=== PATIENT | female | born 1945 | race African-American/Black ===

== ENCOUNTER 2018-11-15 13:38 | Emergency (ER) | payer OTHER ==
[2018-11-15 14:18] VITALS: BP 131/59; PULSE 50; TEMP 97.6; BMI 34.3
[2018-11-15] MEDS ORDERED: ONDANSETRON 4 MG/2 ML VIAL IVPUSH ONE (14:39)
--- NOTE | 2018-11-15 14:39 | PDOC ---
History of Present Illness - General Chief Complaint: CVA/TIA Stated Complaint: LIP & LEG NUMBNESS, L SHOULDER PAIN Time Seen by Provider: 11/15/18 13:46 History Source: Patient Past History - Past Medical History Allergies/Adverse Reactions: Allergies Allergy/AdvReac Type Severity Reaction Status Date / Time codeine [Codeine] Allergy Verified 11/15/18 14:12 Penicillins Allergy Verified 11/15/18 14:12 Home Medications: Ambulatory Orders Omeprazole [Prilosec (RX)] 20 mg PO DAILY 01/19/13 COPD: No GI Disorders: Yes (GERD) - Immunization History Td Vaccination: Yes Immunization Up to Date: Yes - Suicide/Smoking/Psychosocial Hx Smoking Status: No Smoking History: Never smoked Number of Cigarettes Smoked Daily: 0 Hx Alcohol Use: No Drug/Substance Use Hx: No *Physical Exam - Vital Signs Last Vital Signs Temp Pulse Resp BP Pulse Ox 97.6 F 50 L 18 131/59 L 97 11/15/18 13:39 11/15/18 13:39 11/15/18 13:39 11/15/18 13:39 11/15/18 13:39 Moderate Sedation - Procedure Monitoring Vital Signs: Procedure Monitoring Vital Signs Temperature 97.6 F 11/15/18 13:39 Pulse Rate 50 L 11/15/18 13:39 Respiratory Rate 18 11/15/18 13:39 Blood Pressure 131/59 L 11/15/18 13:39 O2 Sat by Pulse Oximetry (%) 97 11/15/18 13:39 *DC/Admit/Observation/Transfer Diagnosis at time of Disposition: Osteoarthritis Qualifiers: Osteoarthritis location: multiple joints Osteoarthritis type: unspecified Qualified Code(s): M15.9 - Polyosteoarthritis, unspecified - Discharge Dispostion Disposition: HOME Condition at time of disposition: Good Decision to Admit order: No - Referrals Referrals: Chris Daniel MD [Primary Care Provider] - - Patient Instructions Printed Discharge Instructions: DI for Arthritis Additional Instructions: Try to do exercise every day. Follow up with your doctor - Post Discharge Activity
[2018-11-15] MEDS ORDERED: ONDANSETRON 4 MG/2 ML VIAL ONE (14:46)
[2018-11-15 15:19] LABS: BASO % 0.7 % (0-2.0); EOS % 0.3 % (0-4.5); HEMATOCRIT 37.2 % (32.4-45.2); HEMOGLOBIN 12.4 GM/dl (10.7-15.3); MCH 29.1 pg (25.7-33.7); MCHC 33.2 g/dl (32.0-36.0); MEAN CELL VOLUME 87.7 fl (80-96); MEAN PLT VOLUME 8.7 fl (7.5-11.1); MONO % 12.1 % (3.8-10.2); NEUT % 57.9 % (42.8-82.8); PLATELET COUNT 163 K/MM3 (134-434); RBC 4.25 M/mm3 (3.60-5.2); RDW 13.4 % (11.6-15.6); WHITE BLOOD COUNT 3.3 K/mm3 (4.0-10.8)
[2018-11-15 15:38] LABS: ALBUMIN 3.7 g/dl (3.4-5.0); ALK PHOS 86 U/L (45-117); ANION GAP 6 MMOL/L (8-16); BILIRUBIN,TOTAL 0.7 mg/dl (0.2-1); BLOOD UREA NITROGEN 15 mg/dl (7-18); CALCIUM 9.1 mg/dl (8.5-10); CHLORIDE 106 mmol/L (98-107); CO2 24 mmol/L (21-32); CREATININE 0.7 mg/dl (0.55-1.3); GLUCOSE,RANDOM 90 mg/dl (74-106); POTASSIUM 3.9 mmol/L (3.5-5.1); SGOT/AST 23 U/L (15-37); SGPT/ALT 19 U/L (13-61); SODIUM 136 mmol/L (136-145); TOT PROT 7.3 g/dl (6.4-8.2)
--- NOTE | 2018-11-16 13:11 | EKG ---
Test Reason : Blood Pressure : / mmHG Vent. Rate : 051 BPM Atrial Rate : 051 BPM P-R Int : 244 ms QRS Dur : 098 ms QT Int : 446 ms P-R-T Axes : 085 053 037 degrees QTc Int : 411 ms SINUS BRADYCARDIA WITH SINUS ARRHYTHMIA WITH 1ST DEGREE A-V BLOCK OTHERWISE NORMAL ECG WHEN COMPARED WITH ECG OF 20-JUL-2011 05:26, NO SIGNIFICANT CHANGE WAS FOUND Confirmed by OLIVER OH, OLGA ([id number]) on 11/16/2018 1:10:45 PM Referred By: DR VEE Confirmed By:OLGA BOYD MD
== END 2018-11-15 16:51 | disposition home or self-care (01) ==
LOC: FER 13:38
PROC: 3E033GC Introduction of Other Therapeutic Substance into Peripheral Vein, Percutaneous Approach (ICD-10-PCS; principal; 2018-11-15)
DX: M15.9 Polyosteoarthritis, unspecified (principal); K21.9 Gastro-esophageal reflux disease without esophagitis; Z88.0 Allergy status to penicillin; Z88.6 Allergy status to analgesic agent
CPT/HCPCS: 36415; 70450-TC; 71045-TC-FY; 80053; 85025; 93005; 99284-25

== ENCOUNTER 2018-12-17 12:02 | Emergency (ER) | payer OTHER ==
[2018-12-17 12:06] VITALS: BP 105/52; PULSE 70; TEMP 97.3; BMI 33.6
[2018-12-17] MEDS ORDERED: SODIUM CHLORIDE 0.9% 1000 ML INFUS.BAG IV ONE (12:46)
[2018-12-17] MEDS ORDERED: ACETAMINOPHEN 1000 MG/100 ML VIAL (NON FORMULARY) IVPB ONE (12:46)
[2018-12-17] MEDS ORDERED: ACETAMINOPHEN INJECTION 100 ML IVPB ONE (13:03)
--- NOTE | 2018-12-17 13:04 | PDOC ---
History of Present Illness - General Chief Complaint: Injury Stated Complaint: Fall Time Seen by Provider: 12/17/18 12:05 - History of Present Illness Initial Comments: 12/17/18 13:00 73 years old with no significant past medical history presents to the emergency department status post a mechanical fall yesterday. Patient has had chronic right hip pain and yesterday while transferring out of bed felt her leg give out on her she fell and landed on her right side also complaining of right hip right abdominal and mild left shoulder. Endorses difficulty with ambulating transferring denies any head trauma no recent fever chills headache chest pain shortness of breath nausea vomiting or diarrhea Past History - Past Medical History Allergies/Adverse Reactions: Allergies Allergy/AdvReac Type Severity Reaction Status Date / Time codeine [Codeine] Allergy Verified 12/17/18 12:06 Penicillins Allergy Verified 12/17/18 12:06 Home Medications: Ambulatory Orders Omeprazole [Prilosec (RX)] 20 mg PO DAILY 01/19/13 COPD: No GI Disorders: Yes (GERD) - Immunization History Td Vaccination: Yes Immunization Up to Date: Yes - Suicide/Smoking/Psychosocial Hx Smoking Status: No Smoking History: Never smoked Number of Cigarettes Smoked Daily: 0 Hx Alcohol Use: No Drug/Substance Use Hx: No Review of Systems - Review of Systems Comments:: 12/17/18 13:01 ROS: A complete review of 10 out of 10 review of systems is taken and is negative apart from what is previously mentioned below and in the HPI. *Physical Exam - Vital Signs Last Vital Signs Temp Pulse Resp BP Pulse Ox 97.3 F L 70 18 105/52 L 98 12/17/18 12:03 12/17/18 12:03 12/17/18 12:03 12/17/18 12:03 12/17/18 12:03 - Physical Exam Comments: 12/17/18 13:08 Vitals: Triage Vital signs reviewed General Appearance: no acute distress, well nourished well developed, Head: Atraumatic, Eyes: Pupils equal reactive round, extraocular movement intact Neck: Supple;No Nucal rigidity Chest Wall: Nontender Cardiac: Regular rate and rhythym, no murmurs, no rubs, no gallops, Lungs: Clear to auscultation bilateral, good air movement bilaterally, Abdomen: Soft, non distended, normal bowel sounds, right lower quadrant tenderness to palpation Extremities: Full range of motion to all extremities, no cyanosis, clubbing, or edema, pain to palpation to the right hip pain with range of motion to the right hip Skin: Warm and dry, no rashes or lesions, no rash, no petechiae Neuro: Strength intact to all extremities, Sensation intact to all extremities, Psych: normal mood, normal affect Moderate Sedation - Procedure Monitoring Vital Signs: Procedure Monitoring Vital Signs Temperature 97.3 F L 12/17/18 12:03 Pulse Rate 70 12/17/18 12:03 Respiratory Rate 18 12/17/18 12:03 Blood Pressure 105/52 L 12/17/18 12:03 O2 Sat by Pulse Oximetry (%) 98 12/17/18 12:03 ED Treatment Course - LABORATORY CBC & Chemistry Diagram: 12/17/18 12:47 12/17/18 12:47 - RADIOLOGY Radiology Studies Ordered: Category Date Time Status ABDOMEN & PELVIS CT W/O CONTR [CT] Stat CT Scan 12/17/18 12:44 Ordered HIP & PELVIS-LEFT [RAD] Stat Radiology 12/17/18 12:45 Ordered Medical Decision Making - Medical Decision Making 12/17/18 15:34 Right hip right lower quadrant left shoulder pain status post mechanical fall yesterday Labs and urinalysis within normal limits, CAT scan with no acute pathology. Patient has had chronic right hip pain. I provided the patient with orthopedic follow-up given age and comorbidities we'll recommend Tylenol to 6 hours as needed for pain Findings, the need for follow-up and strict return instructions discussed with patient. *DC/Admit/Observation/Transfer Diagnosis at time of Disposition: Hip pain Qualifiers: Laterality: right Qualified Code(s): M25.551 - Pain in right hip - Discharge Dispostion Disposition: HOME Condition at time of disposition: Stable Decision to Admit order: No - Referrals Referrals: Eduardo Rodriguez MD [Staff Physician] - - Patient Instructions Printed Discharge Instructions: DI for Hip Bursitis Additional Instructions: Ice affected area 20 minutes on 20 minutes off. Take [id number] Tylenol as directed on package as needed for pain. Follow-up this week with Dr. Rodriguez orthopedics. Return to the emergency department for any severe worsening symptoms or for any concerns. - Post Discharge Activity
[2018-12-17 13:23] LABS: HEMOGLOBIN 11.9 GM/dl (10.7-15.3); MCH 27.6 pg (25.7-33.7); MCHC 32.2 g/dl (32.0-36.0); MEAN CELL VOLUME 85.7 fl (80-96); MEAN PLT VOLUME 9.1 fl (7.5-11.1); PLATELET COUNT 164 K/MM3 (134-434); RBC 4.32 M/mm3 (3.60-5.2); RDW 12.6 % (11.6-15.6); WHITE BLOOD COUNT 3.1 K/mm3 (4.0-10.8)
[2018-12-17 13:31] LABS: ALBUMIN 3.4 g/dl (3.4-5.0); ALK PHOS 77 U/L (45-117); ANION GAP 9 MMOL/L (8-16); BILIRUBIN,TOTAL 0.4 mg/dl (0.2-1); BLOOD UREA NITROGEN 14 mg/dl (7-18); CALCIUM 8.9 mg/dl (8.5-10); CHLORIDE 104 mmol/L (98-107); CO2 24 mmol/L (21-32); CREATININE 0.9 mg/dl (0.55-1.3); GLUCOSE,RANDOM 97 mg/dl (74-106); POTASSIUM 3.7 mmol/L (3.5-5.1); SGOT/AST 22 U/L (15-37); SGPT/ALT 17 U/L (13-61); SODIUM 137 mmol/L (136-145); TOT PROT 7.2 g/dl (6.4-8.2)
[2018-12-17 15:17] LABS: URINE APPEARANCE Clear; URINE BILIRUBIN Negative (NEGATIVE); URINE COLOR Yellow; URINE GLUCOSE (UA) Negative (NEGATIVE); URINE KETONE Negative (NEGATIVE); URINE LEUK ESTERASE Negative (NEGATIVE); URINE NITRITE Negative (NEGATIVE); URINE PROTEIN Negative (NEGATIVE)
[2018-12-17 20:26] LABS: PLATELET ESTIMATE ADEQUATE
== END 2018-12-17 15:45 | disposition home or self-care (01) ==
LOC: FER 12:02
PROC: 3E033NZ Introduction of Analgesics, Hypnotics, Sedatives into Peripheral Vein, Percutaneous Approach (ICD-10-PCS; principal; 2018-12-17)
PROC: 3E0337Z Introduction of Electrolytic and Water Balance Substance into Peripheral Vein, Percutaneous Approach (ICD-10-PCS; 2018-12-17)
DX: M25.511 Pain in right shoulder (principal); W18.39XA Other fall on same level, initial encounter; Y93.89 Activity, other specified; Y92.89 Other specified places as the place of occurrence of the external cause
CPT/HCPCS: 36415; 73030-TC-LT-FY; 73523-TC-FY; 74176-TC; 80053; 81003; 85025; 87086; 99282-25; J0131; J7030

== ENCOUNTER 2019-07-09 11:28 | Emergency (ER) | payer OTHER ==
--- NOTE | 2019-07-09 11:35 | PDOC ---
History of Present Illness - General Chief Complaint: Injury Stated Complaint: FALL Time Seen by Provider: 07/09/19 11:34 History Source: Patient Exam Limitations: No Limitations - History of Present Illness Initial Comments: 07/09/19 12:00 Kemi Smiley is a 74yF w PMHx osteoarthritis presenting w fall. At 8:15am, pt was pushing cart to car, got cart stuck in sidewalk rut, fell back onto L hip 1st, then R hip. N LOC, vomiting, change in vision, not on blood thinners. Currently has nausea, bilateral hip pain, and R distal tib/fib pain. Ambulated after incident. Denies fever, headache, cough, SOB, chest/AB pain, urinary/bowel movement changes. Past History - Past Medical History Allergies/Adverse Reactions: Allergies Allergy/AdvReac Type Severity Reaction Status Date / Time codeine [Codeine] Allergy Rash Verified 07/09/19 11:33 Penicillins Allergy Rash Verified 07/09/19 11:33 Home Medications: Ambulatory Orders Omeprazole [Prilosec (RX)] 20 mg PO DAILY 01/19/13 COPD: No GI Disorders: Yes (GERD) - Immunization History Td Vaccination: Yes Immunization Up to Date: Yes - Psycho Social/Smoking Cessation Hx Smoking Status: No Smoking History: Never smoked Number of Cigarettes Smoked Daily: 0 Hx Alcohol Use: No Drug/Substance Use Hx: No Review of Systems - Review of Systems Constitutional: No: Chills, Fever HEENTM: No: Eye Pain, Nose Pain, Throat Pain, Mouth Pain Respiratory: No: Cough, Shortness of Breath Cardiac (ROS): No: Chest Pain, Palpitations, Syncope ABD/GI: Yes: Nausea. No: Abdominal Distended, Constipated, Diarrhea, Vomiting : No: Burning, Dysuria, Discharge, Frequency, Flank Pain, Hematuria Musculoskeletal: Yes: Other (xiomy hip, distal r tib/fib pain). No: Joint Swelling, Muscle Pain Integumentary: No: Bruising, Dryness, Erythema Neurological: No: Headache, Seizure, Tingling, Tremors Psychiatric: No: Anxiety, Depression, Stressors Endocrine: No: Excessive Sweating, Flushing, Intolerance to Cold, Intolerance to Heat Hematologic/Lymphatic: No: Anemia, Blood Clots *Physical Exam - Physical Exam General Appearance: Yes: Nourished, Appropriately Dressed, Mild Distress HEENT: positive: EOMI, IRVIN, Normal Voice, Hearing Grossly Normal. negative: Scleral Icterus (R), Scleral Icterus (L), Nasal Congestion, Rhinorrhea Respiratory/Chest: positive: Lungs Clear, Normal Breath Sounds. negative: Chest Tender, Respiratory Distress, Crackles, Rales, Rhonchi, Stridor, Wheezing Cardiovascular: positive: Regular Rate, S1, S2, Bradycardia. negative: Edema, Murmur Vascular Pulses: Dorsalis-Pedis (R): 3+, Doralis-Pedis (L): 3+ Gastrointestinal/Abdominal: positive: Normal Bowel Sounds, Flat, Soft. negative : Tender, Organomegaly, Distended, Guarding Musculoskeletal: positive: Normal Inspection, Other (no vertebral step-offs/ deformities/edema). negative: CVA Tenderness (R), CVA Tenderness (L), Vertebral Tenderness Extremity: positive: Normal Capillary Refill, Tender (R > L lateral hip tenderness 2 inches below ischial spines, tender distal lateral R tib/fib), Pelvis Stable. negative: Swelling Integumentary: positive: Normal Color. negative: Rash, Swelling, Ecchymosis, Bruising Neurologic: positive: communications supervisor II-XII NML intact, Fully Oriented, Alert, Normal Mood/ Affect, Normal Response, Responsive. negative: Motor Strength 5/5 (4/5 L hip flexion, 3/5 R hip flexion, 5/5 xiomy dorsi/plantarflexion), Numbness, Sensory Deficit, Confused, Disoriented ED Treatment Course - LABORATORY CBC & Chemistry Diagram: 07/09/19 12:08 07/09/19 12:08 Medical Decision Making - Medical Decision Making 07/09/19 12:19 CBC CMP trop coags T&S Kemi Smiley is a 74yF w PMHx osteoarthritis presenting w bilateral hip pain and R ankle pain s/p mechanical fall. Hip/pelvis, R ankle XR do not show acute fracture or dislocation. Blood work (CBC, CMP, trop, coags, T&S) normal. Given 1g IV tylenol for pain. Pt ambulating without assistance. D/c home with instructions for tylenol/ibuprofen/ice pain management, PCP f/u, ortho f/u if no improvement. Discharge - Discharge Information Problems reviewed: Yes Clinical Impression/Diagnosis: Hip pain, bilateral Right ankle pain Qualifiers: Chronicity: acute Qualified Code(s): M25.571 - Pain in right ankle and joints of right foot Condition: Stable Disposition: HOME - Admission No - Follow up/Referral Referrals: Chris Daniel MD [Primary Care Provider] - Ramírez Billings DO [Staff Physician] - - Patient Discharge Instructions Patient Printed Discharge Instructions: DI for Hip Pain Additional Instructions: You were seen for hip and ankle pain after falling down. Your x-rays did not show any bone fractures or dislocation. You were given medication for your pain. Please follow up with your primary care doctor regarding this visit. You can apply ice to the painful areas, and take tylenol or ibuprofen as directed on the packaging if you continue to have pain. See the referred orthopedic doctor Dr. Billings if you continue to have pain. Come back to the ED if you cannot walk, develop leg numbness, or have trouble urinating or with bowel movements - Post Discharge Activity
[2019-07-09 11:41] VITALS: TEMP 97.9; BMI 34.5
--- NOTE | 2019-07-09 11:59 | PDOC ---
Attending Attestation - Resident Resident Name: Bipin Young - ED Attending Attestation I have performed the following: I have examined & evaluated the patient, The case was reviewed & discussed with the resident, I agree w/resident's findings & plan, Exceptions are as noted - HPI HPI: 07/09/19 13:54 74 years old past medical history significant for osteoarthritis, GERD, the emergency department status post mechanical fall the cart she was pushing got stuck she fell back onto her left hip and twisted her right hip which she has had chronic pain in. Complaining of pain to her right hip mild pain to her left hip and right distal tib-fib. Pain is mild to moderate she's been able to ambulate on it she ambulated into the emergency department. Pain is alleviated by rest. - Physicial Exam PE: 07/09/19 13:54 Vitals: Triage Vital signs reviewed General Appearance: no acute distress, well nourished well developed, Head: Atraumatic, Neck: Supple;No Nucal rigidity Chest Wall: Nontender Cardiac: Regular rate and rhythym, no murmurs, no rubs, no gallops, Lungs: Clear to auscultation bilateral, good air movement bilaterally, Abdomen: Soft, non distended, normal bowel sounds, non tender to palpation Extremities: Full range of motion to all extremities, no cyanosis, clubbing, or edema, mild pain with range of motion of right hip. Full range of motion no deformity. Skin: Warm and dry, no rashes or lesions, no rash, no petechiae Neuro: Strength intact to all extremities, Sensation intact to all extremities, gait normal Psych: normal mood, normal affect - Medical Decision Making 07/09/19 13:57 Well-appearing no apparent distress. Mechanical fall no head trauma X-rays performed no fractures. Patient's comfortable able to ambulate in no distress we'll have patient follow up with orthopedics this week. Findings, the need for follow-up and strict return instructions discussed with patient.
[2019-07-09] MEDS ORDERED: ACETAMINOPHEN 1000 MG/100 ML VIAL (NON FORMULARY) IVPB ONE (12:00)
[2019-07-09] MEDS ORDERED: ACETAMINOPHEN INJECTION 100 ML IVPB ONE (12:36)
[2019-07-09 12:37] LABS: HEMOGLOBIN 11.8 GM/dl (10.7-15.3); MCH 28.8 pg (25.7-33.7); MCHC 32.7 g/dl (32.0-36.0); MEAN CELL VOLUME 88.1 fl (80-96); MEAN PLT VOLUME 9.5 fl (7.5-11.1); PLATELET COUNT 133 K/MM3 (134-434); RBC 4.09 M/mm3 (3.60-5.2); RDW 13.3 % (11.6-15.6); WHITE BLOOD COUNT 3.2 K/mm3 (4.0-10.8)
[2019-07-09 12:46] LABS: ALBUMIN 3.5 g/dl (3.4-5.0); BILIRUBIN,TOTAL 0.7 mg/dl (0.2-1); CALCIUM 8.7 mg/dl (8.5-10); CREATININE 0.9 mg/dl (0.55-1.3); INR 1.18 (0.82-1.09); POTASSIUM 3.5 mmol/L (3.5-5.1); PROTHROMBIN TIME (PATIENT) 13.2 SEC (10.2-13.0); TOT PROT 7.2 g/dl (6.4-8.2)
[2019-07-09 13:38] VITALS: BP 129/75; PULSE 78
[2019-07-09 13:43] LABS: PLATELET ESTIMATE ADEQUATE
== END 2019-07-09 13:40 | disposition home or self-care (01) ==
LOC: FER 11:28
PROC: 3E0337Z Introduction of Electrolytic and Water Balance Substance into Peripheral Vein, Percutaneous Approach (ICD-10-PCS; principal; 2019-07-09)
DX: M25.552 Pain in left hip (principal); M25.551 Pain in right hip; M19.90 Unspecified osteoarthritis, unspecified site; W18.39XA Other fall on same level, initial encounter; Y93.89 Activity, other specified; Y92.89 Other specified places as the place of occurrence of the external cause
CPT/HCPCS: 36415; 73523-TC-FY; 73590-TC-RT-FY; 73610-TC-RT-FY; 80053; 84484; 85025; 85610; 85730; 86850; 86900; 86901; 99284-25; J0131

== ENCOUNTER 2021-12-29 10:09 | Observation (INO) | payer OTHER ==
[2021-12-29] MEDS ORDERED: MECLIZINE HCL 25 MG TABLET (FP) PO ONE (10:35)
[2021-12-29] MEDS ORDERED: SODIUM CHLORIDE 1,000 ML IV STA (10:35)
[2021-12-29] MEDS ORDERED: ONDANSETRON 4 MG/2 ML VIAL IVPUSH ONE (10:35)
[2021-12-29] MEDS ORDERED: ONDANSETRON 4 MG/2 ML VIAL ONE (10:59)
[2021-12-29] MEDS ORDERED: MECLIZINE HCL 25 MG TABLET (FP) ONE (10:59)
[2021-12-29 11:23] LABS: BASO % 0.7 % (0-2.0); EOS % 0.6 % (0-4.5); HEMATOCRIT 38.1 % (32.4-45.2); HEMOGLOBIN 12.9 GM/dL (10.7-15.3); LYMPH % 17.3 % (8-40); MCH 28.8 pg (25.7-33.7); MCHC 33.8 g/dl (32.0-36.0); MONO % 12.6 % (3.8-10.2); NEUT % 68.8 % (42.8-82.8); PLATELET COUNT 118 10^3/uL (134-434); RBC 4.49 M/mm3 (3.60-5.2); RDW 14.1 % (11.6-15.6); WHITE BLOOD COUNT 3.7 K/mm3 (4.0-10.0)
[2021-12-29 11:47] LABS: CALCIUM 8.9 mg/dL (8.5-10.1)
[2021-12-29 11:48] LABS: ALBUMIN 3.2 g/dl (3.4-5.0); BLOOD UREA NITROGEN 11.3 mg/dL (7-18)
[2021-12-29 11:51] LABS: CREATININE 0.7 mg/dL (0.55-1.3)
[2021-12-29 11:53] LABS: BILIRUBIN,TOTAL 0.6 mg/dL (0.2-1); TOT PROT 7.1 g/dl (6.4-8.2)
[2021-12-29 13:03] LABS: PH,URINE 8.5 (5.0-8.0); URINE APPEARANCE CLEAR; URINE BILIRUBIN NEGATIVE (NEGATIVE); URINE COLOR YELLOW; URINE GLUCOSE (UA) NEGATIVE (NEGATIVE); URINE KETONE NEGATIVE (NEGATIVE); URINE LEUK ESTERASE NEGATIVE (NEGATIVE); URINE NITRITE NEGATIVE (NEGATIVE); URINE PROTEIN NEGATIVE (NEGATIVE); URINE UROBILINOGEN 0.2 mg/dL (0.2-1.0)
[2021-12-29 18:11] VITALS: BMI 27.2
[2021-12-29] MEDS: MECLIZINE HCL 12.5 MG TABLET PO SCH ×2 (18:15→23:24)
[2021-12-29] MEDS: ASPIRIN COATED 81 MG TABLET.EC PO SCH (18:15)
[2021-12-29] MEDS: D5-1/2NS+20 MEQ KCL - 20 MEQ/1,000 ML INFUS.BAG IV SCH (18:21)
[2021-12-29] MEDS: HEPARIN NA (PORCINE) 5,000 UNITS/ML 1ML VIAL SQ SCH (22:01)
[2021-12-30] MEDS: MECLIZINE HCL 12.5 MG TABLET PO SCH ×3 (05:39→18:08)
[2021-12-30 07:03] LABS: EOS % 1.2 % (0-4.5); HEMATOCRIT 36.2 % (32.4-45.2); HEMOGLOBIN 12.2 GM/dL (10.7-15.3); LYMPH % 43.3 % (8-40); MCH 28.9 pg (25.7-33.7); MCHC 33.8 g/dl (32.0-36.0); MEAN CELL VOLUME 85.4 fl (80-96); MEAN PLT VOLUME 9.3 fl (7.5-11.1); MONO % 18.5 % (3.8-10.2); PLATELET COUNT 102 10^3/uL (134-434); RBC 4.23 M/mm3 (3.60-5.2); WHITE BLOOD COUNT 2.3 K/mm3 (4.0-10.0)
[2021-12-30 07:23] LABS: BLOOD UREA NITROGEN 13.5 mg/dL (7-18); CALCIUM 8.3 mg/dL (8.5-10.1)
[2021-12-30 07:24] LABS: ALBUMIN 2.6 g/dl (3.4-5.0); MAGNESIUM 2.1 mg/dL (1.8-2.4)
[2021-12-30 07:26] LABS: CREATININE 0.8 mg/dL (0.55-1.3)
[2021-12-30 07:28] LABS: BILIRUBIN,TOTAL 0.4 mg/dL (0.2-1); TOT PROT 6.2 g/dl (6.4-8.2)
[2021-12-30] MEDS: HEPARIN NA (PORCINE) 5,000 UNITS/ML 1ML VIAL SQ SCH ×2 (09:47→22:07)
[2021-12-30] MEDS: PANTOPRAZOLE 20 MG TABLET PO SCH (09:47)
[2021-12-30] MEDS: ASPIRIN COATED 81 MG TABLET.EC PO SCH (09:47)
[2021-12-30] MEDS: D5-1/2NS+20 MEQ KCL - 20 MEQ/1,000 ML INFUS.BAG IV SCH (18:08)
[2021-12-31] MEDS: MECLIZINE HCL 12.5 MG TABLET PO SCH ×4 (05:45→18:07)
[2021-12-31] MEDS: HEPARIN NA (PORCINE) 5,000 UNITS/ML 1ML VIAL SQ SCH (10:10)
[2021-12-31] MEDS: ASPIRIN COATED 81 MG TABLET.EC PO SCH (10:10)
[2021-12-31] MEDS: PANTOPRAZOLE 20 MG TABLET PO SCH (10:10)
[2021-12-31 11:46] LABS: BASO % 1.7 % (0-2.0); EOS % 0.2 % (0-4.5); HEMATOCRIT 41.7 % (32.4-45.2); LYMPH % 29.2 % (8-40); MCH 28.7 pg (25.7-33.7); MCHC 33.5 g/dl (32.0-36.0); MEAN CELL VOLUME 85.7 fl (80-96); MEAN PLT VOLUME 8.9 fl (7.5-11.1); MONO % 18.5 % (3.8-10.2); NEUT % 50.4 % (42.8-82.8); PLATELET COUNT 118 10^3/uL (134-434); RBC 4.87 M/mm3 (3.60-5.2); RDW 13.9 % (11.6-15.6); WHITE BLOOD COUNT 3.1 K/mm3 (4.0-10.0)
[2021-12-31 12:23] LABS: ERYTHROCYTE SEDIMENTATION RATE 38 mm/hr (0-30)
[2021-12-31 14:09] VITALS: TEMP 97.5
[2021-12-31] MEDS: D5-1/2NS+20 MEQ KCL - 20 MEQ/1,000 ML INFUS.BAG IV SCH (15:00)
[2021-12-31 17:33] VITALS: BP 136/48; PULSE 54
== END 2021-12-31 21:30 | disposition home or self-care (01) ==
LOC: JER 10:09 → JERBED 14:08 → UNDOADMOB 14:08 → INTOOBSV 14:08 → OBSVTOIN 14:08 → JERBED 17:24 → J4W 17:24
PROVIDERS: ADMIT Family Medicine; ATTEND Family Medicine
PROC: 3E023GC Introduction of Other Therapeutic Substance into Muscle, Percutaneous Approach (ICD-10-PCS; principal; 2021-12-31)
PROC: 3E033GC Introduction of Other Therapeutic Substance into Peripheral Vein, Percutaneous Approach (ICD-10-PCS; 2021-12-31)
PROC: 3E0337Z Introduction of Electrolytic and Water Balance Substance into Peripheral Vein, Percutaneous Approach (ICD-10-PCS; 2021-12-31)
DX: D72.819 Decreased white blood cell count, unspecified (principal); R00.1 Bradycardia, unspecified; R42 Dizziness and giddiness; M15.9 Polyosteoarthritis, unspecified; K21.9 Gastro-esophageal reflux disease without esophagitis; Z88.0 Allergy status to penicillin; Z88.6 Allergy status to analgesic agent
CPT/HCPCS: 36415; 70450-TC; 70551-TC; 76700-TC; 80053; 81003; 82607; 82746; 83735; 84439; 84443; 84484; 85025; 85651; 86140; 86431; 87086; 88300-TC; 93005; 93010; 93306-TC; 96361; 96372; 96374; 99285-25; C9803-CS; G0378; J1644; U0003; U0005

== ENCOUNTER 2022-03-20 10:17 | Emergency (ER) | payer OTHER ==
[2022-03-20 10:36] VITALS: BP 115/86; PULSE 56; TEMP 97.9; BMI 26.5
[2022-03-20] MEDS ORDERED: ACETAMINOPHEN 500 MG TABLET (FP) PO ONE (10:44)
[2022-03-20 11:06] LABS: BASO % 0.8 % (0-2.0); EOS % 0.5 % (0-4.5); HEMATOCRIT 38.6 % (32.4-45.2); HEMOGLOBIN 12.8 GM/dL (10.7-15.3); LYMPH % 31.8 % (8-40); MCH 28.1 pg (25.7-33.7); MEAN CELL VOLUME 85.2 fl (80-96); MEAN PLT VOLUME 8.9 fl (7.5-11.1); MONO % 17.3 % (3.8-10.2); NEUT % 49.6 % (42.8-82.8); PLATELET COUNT 111 10^3/uL (134-434); RBC 4.53 M/mm3 (3.60-5.2); RDW 13.6 % (11.6-15.6); WHITE BLOOD COUNT 2.5 K/mm3 (4.0-10.0)
[2022-03-20] MEDS ORDERED: ACETAMINOPHEN 500 MG TABLET (FP) ONE (11:22)
[2022-03-20 11:27] LABS: ACTIVATED PTT 33.3 SECONDS (25.2-36.5); INR 1.02 (0.83-1.09); PROTHROMBIN TIME (PATIENT) 11.7 SEC (9.7-13.0)
[2022-03-20 11:35] LABS: ALBUMIN 3.3 g/dl (3.4-5.0); BLOOD UREA NITROGEN 14.1 mg/dL (7-18); CALCIUM 8.9 mg/dL (8.5-10.1); MAGNESIUM 2.1 mg/dL (1.8-2.4)
[2022-03-20 11:38] LABS: CREATININE 0.8 mg/dL (0.55-1.3)
[2022-03-20 11:40] LABS: BILIRUBIN,TOTAL 0.5 mg/dL (0.2-1); TOT PROT 7.4 g/dl (6.4-8.2)
[2022-03-20 11:43] LABS: N-TERMINAL BNP 196.6 pg/ml (5-450)
[2022-03-20 12:04] LABS: PH,URINE 6.5 (5.0-8.0); URINE APPEARANCE CLEAR; URINE BILIRUBIN NEGATIVE (NEGATIVE); URINE COLOR YELLOW; URINE GLUCOSE (UA) NEGATIVE (NEGATIVE); URINE KETONE NEGATIVE (NEGATIVE); URINE LEUK ESTERASE NEGATIVE (NEGATIVE); URINE NITRITE NEGATIVE (NEGATIVE); URINE PROTEIN NEGATIVE (NEGATIVE); URINE UROBILINOGEN 0.2 mg/dL (0.2-1.0)
== END 2022-03-20 15:15 | disposition home or self-care (01) ==
LOC: JER 10:17
DX: R07.89 Other chest pain (principal)
CPT/HCPCS: 0241U-QW; 36415; 71045-TC-FY; 71275-TC; 80053; 81003; 83735; 83880; 84484; 85025; 85379; 85610; 85730; 87086; 93005; 93010; 99285-25; Q9967

== ENCOUNTER 2022-06-03 11:56 | Day surgery (SDC) | payer OTHER ==
[2022-05-24 15:02] VITALS: BMI 26.5
[2022-06-03] MEDS ORDERED: MIDAZOLAM HCL 2 MG/2 ML SINGLE DOSE VIAL ONE (12:04)
[2022-06-03] MEDS ORDERED: BUPIVACAINE HCL/PF 0.5% (5 MG/ML) 30 ML VIAL IJ ONE (12:50)
[2022-06-03] MEDS ORDERED: oxyCODONE HCL 5 MG TABLET PO PRN ×2 (13:15)
[2022-06-03] MEDS ORDERED: ACETAMINOPHEN 1000 MG/100 ML BAG IVPB ONE (13:15)
[2022-06-03] MEDS ORDERED: ONDANSETRON 4 MG/2 ML VIAL IVPUSH PRN (13:15)
[2022-06-03] MEDS ORDERED: LACTATED RINGERS SOLUTION 1,000 ML IV SCH (13:15)
[2022-06-03] MEDS ORDERED: BUPIVACAINE HCL/EPINEPHRINE/PF 30 ML VIAL IJ ONE (13:56)
[2022-06-03] MEDS ORDERED: ceFAZolin SODIUM 1 GM VIAL ONE (15:49)
[2022-06-03] MEDS ORDERED: SODIUM CHLORIDE 0.9% P/F 10 ML VIAL IJ ONE (15:49)
[2022-06-03] MEDS ORDERED: ACETAMINOPHEN INJECTION 100 ML IVPB ONE (17:05)
[2022-06-03] MEDS: MECLIZINE HCL 12.5 MG TABLET PO SCH (18:47)
[2022-06-04] MEDS: MECLIZINE HCL 12.5 MG TABLET PO SCH ×3 (00:59→11:14)
[2022-06-04 06:42] VITALS: PULSE 56; RESP 18
[2022-06-04] MEDS ORDERED: LEVOTHYROXINE NA 25 MCG TABLET (FP) PO SCH (07:00)
[2022-06-04 09:09] VITALS: BP 132/55; TEMP 97.9
[2022-06-04] MEDS ORDERED: PANTOPRAZOLE 20 MG TABLET PO SCH (10:00)
== END 2022-06-04 12:05 | disposition home or self-care (01) ==
LOC: FASUSAT 11:56 → FM/S 18:20 → FASUSAT 06-04 12:05
PROVIDERS: ATTEND Orthopaedic Surgery
PROC: 0PB94ZZ Excision of Right Clavicle, Percutaneous Endoscopic Approach (ICD-10-PCS; 2022-06-03)
PROC: 0RBJ4ZZ Excision of Right Shoulder Joint, Percutaneous Endoscopic Approach (ICD-10-PCS; 2022-06-03)
PROC: 0LS30ZZ Reposition Right Upper Arm Tendon, Open Approach (ICD-10-PCS; 2022-06-03)
PROC: 0LQ14ZZ Repair Right Shoulder Tendon, Percutaneous Endoscopic Approach (ICD-10-PCS; principal; 2022-06-03 16:00)
PROC: 0LS34ZZ Reposition Right Upper Arm Tendon, Percutaneous Endoscopic Approach (ICD-10-PCS; 2022-06-03 16:00)
PROC: 0RNJ4ZZ Release Right Shoulder Joint, Percutaneous Endoscopic Approach (ICD-10-PCS; 2022-06-03 16:00)
DX: M19.011 Primary osteoarthritis, right shoulder (principal); M75.01 Adhesive capsulitis of right shoulder; M75.101 Unspecified rotator cuff tear or rupture of right shoulder, not specified as traumatic; M75.21 Bicipital tendinitis, right shoulder; M75.51 Bursitis of right shoulder
CPT/HCPCS: 88304-TC; 94760; C1713

== ENCOUNTER 2022-06-04 16:11 | Emergency (ER) | payer OTHER ==
[2022-06-04] MEDS ORDERED: ACETAMINOPHEN 500 MG TABLET (FP) PO ONE (16:31)
[2022-06-04] MEDS ORDERED: IBUPROFEN 600 MG TABLET (FP) PO ONE ×2 (16:31→16:36)
[2022-06-04 16:35] VITALS: BP 155/96; PULSE 66; RESP 20; TEMP 98; BMI 27.3
[2022-06-04] MEDS ORDERED: ACETAMINOPHEN 500 MG TABLET (FP) ONE (16:36)
== END 2022-06-04 18:01 | disposition home or self-care (01) ==
LOC: FER 16:11
DX: M25.511 Pain in right shoulder (principal)
CPT/HCPCS: 99283-25

== ENCOUNTER 2022-06-20 13:00 | Emergency (ER) | payer OTHER ==
[2022-06-20] MEDS ORDERED: SODIUM CHLORIDE 1,000 ML IV STA (13:18)
[2022-06-20] MEDS ORDERED: ONDANSETRON 4 MG/2 ML VIAL IVPUSH ONE (13:18)
[2022-06-20] MEDS ORDERED: FAMOTIDINE 20 MG/50 ML IVPB 20 MG/50 ML MG IVPB ONE ×2 (13:18→13:34)
[2022-06-20 13:21] VITALS: BMI 27.2
[2022-06-20] MEDS ORDERED: ONDANSETRON 4 MG/2 ML VIAL ONE (13:34)
[2022-06-20 13:42] LABS: HEMATOCRIT 36.7 % (32.4-45.2); HEMOGLOBIN 12.9 G/dL (10.7-15.3); MCHC 35.2 g/dl (32.0-36.0); MEAN CELL VOLUME 85.4 fl (80-96); PLATELET COUNT 124.2 10^3/uL (134-434); RDW 14.8 % (11.6-15.6); WHITE BLOOD COUNT 3.3 10^3/uL (4.0-10.8)
[2022-06-20 14:05] LABS: ALBUMIN 3.5 g/dl (3.4-5.0); BILIRUBIN,TOTAL 0.6 mg/dl (0.2-1); CALCIUM 9.8 mg/dl (8.5-10); TOT PROT 7.4 g/dl (6.4-8.2)
[2022-06-20 16:01] LABS: PLATELET ESTIMATE DECREASED
[2022-06-20 16:07] LABS: EPITHELIAL CELLS FEW /hpf; URINE MUCUS 1+
[2022-06-20 18:42] VITALS: BP 118/75; PULSE 69; RESP 18; TEMP 97.7
== END 2022-06-20 18:40 | disposition home or self-care (01) ==
LOC: FER 13:00
PROC: 3E033GC Introduction of Other Therapeutic Substance into Peripheral Vein, Percutaneous Approach (ICD-10-PCS; principal; 2022-06-20)
DX: R11.2 Nausea with vomiting, unspecified (principal)
CPT/HCPCS: 36415; 74177-TC; 80053; 81003; 81015; 83690; 84484; 85027; 93005; 93010; 99285-25; Q9967

== ENCOUNTER 2022-08-07 16:00 | Inpatient (IN) | payer OTHER ==
[2022-08-07] MEDS ORDERED: SODIUM CHLORIDE 2,449 ML IV ONE (17:50)
[2022-08-07] MEDS ORDERED: ACETAMINOPHEN 1000 MG/100 ML BAG IVPB ONE (17:56)
[2022-08-07] MEDS ORDERED: LACTATED RINGERS SOLUTION 1000 ML INFUS.BAG IV ONE (17:56)
[2022-08-07] MEDS ORDERED: ACETAMINOPHEN INJECTION 100 ML IVPB ONE (18:44)
[2022-08-07 18:49] LABS: ARTERIAL BLD GAS O2 SATURATION 96.4 % (95-98); ARTERIAL BLOOD GAS BASE EXCESS -0.1 mmol/L (-2-2); ARTERIAL BLOOD GAS PO2 74.8 mmHg (80-100)
[2022-08-07 18:50] LABS: BASO % 0.6 % (0-2.0); HEMATOCRIT 36.5 % (32.4-45.2); HEMOGLOBIN 12.1 GM/dL (10.7-15.3); LYMPH % 8.7 % (8-40); MCH 28.6 pg (25.7-33.7); MCHC 33.2 g/dl (32.0-36.0); MEAN CELL VOLUME 86.2 fl (80-96); MEAN PLT VOLUME 9.5 fl (7.5-11.1); MONO % 7.9 % (3.8-10.2); NEUT % 82.8 % (42.8-82.8); RBC 4.23 M/mm3 (3.60-5.2); WHITE BLOOD COUNT 7.7 K/mm3 (4.0-10.0)
[2022-08-07 18:58] LABS: INR 1.17 (0.83-1.09); PROTHROMBIN TIME (PATIENT) 13.5 SEC (9.7-13.0)
[2022-08-07 19:01] LABS: ACTIVATED PTT 19.4 SECONDS (25.2-36.5)
[2022-08-07 19:17] LABS: CALCIUM 8.6 mg/dL (8.5-10.1)
[2022-08-07 19:18] LABS: ALBUMIN 3.3 g/dl (3.4-5.0); BLOOD UREA NITROGEN 14.5 mg/dL (7-18)
[2022-08-07 19:22] LABS: TOT PROT 7.7 g/dl (6.4-8.2)
[2022-08-07 19:37] LABS: PLATELET COUNT 99 10^3/uL (134-434)
[2022-08-07 19:38] LABS: PLATELET ESTIMATE DECREASED
[2022-08-07 21:03] LABS: EPI CELLS 12 /uL (0-25.1); HYALINE CASTS 0 /uL (0-3.1); PH,URINE 6.5 (5.0-8.0); URINE APPEARANCE CLEAR; URINE BACTERIA 5 /uL (0-1359); URINE BILIRUBIN NEGATIVE (NEGATIVE); URINE COLOR YELLOW; URINE GLUCOSE (UA) NEGATIVE (NEGATIVE); URINE KETONE 1+ (NEGATIVE); URINE LEUK ESTERASE NEGATIVE (NEGATIVE); URINE NITRITE NEGATIVE (NEGATIVE); URINE PROTEIN 2+ (NEGATIVE); URINE RBC 85 /uL (0-23.9); URINE WBC 10 /uL (0-25.8)
[2022-08-07] MEDS ORDERED: AZITHROMYCIN IVPB 500 MG in DEXTROSE 5%-WATER - 250 ML IVPB ONE (21:46)
[2022-08-07] MEDS ORDERED: CEFAZOLIN 1 GM in DEXTROSE 5%-WATER - 50 ML IVPB ONE (21:46)
[2022-08-07] MEDS ORDERED: AZITHROMYCIN IVPB 500 MG/250 ML BAG IVPB ONE (23:06)
[2022-08-08] MEDS ORDERED: ceFAZolin SODIUM 1 GM VIAL ONE (00:47)
[2022-08-08] MEDS ORDERED: CEFTRIAXONE 1,000 MG in DEXTROSE 5%-WATER - 50 ML IVPB ONE (00:59)
[2022-08-08] MEDS ORDERED: CEFTRIAXONE 1 GM/50 ML BAG ONE (01:02)
[2022-08-08] MEDS ORDERED: METOPROLOL TARTRATE 5 MG/5 ML VIAL IVPUSH ONE (02:20)
[2022-08-08] MEDS ORDERED: ACETAMINOPHEN 1000 MG/100 ML BAG IVPB PRN ×2 (02:31→02:34)
[2022-08-08] MEDS ORDERED: ONDANSETRON 4 MG/2 ML VIAL IVPUSH PRN (02:33)
[2022-08-08] MEDS ORDERED: traMADol HCL 50 MG TABLET PO PRN (02:33)
[2022-08-08] MEDS ORDERED: TRIMETHOBENZAMIDE HCL 200MG/2ML INJ IM PRN (02:38)
[2022-08-08 02:56] LABS: MAGNESIUM 2.1 mg/dL (1.8-2.4)
[2022-08-08 02:59] LABS: PHOSPHOROUS 3.1 mg/dL (2.5-4.9)
[2022-08-08] MEDS ORDERED: ACETAMINOPHEN INJECTION 100 ML IVPB ONE (03:32)
[2022-08-08] MEDS ORDERED: dilTIAZem HCL 125 MG/25 ML - 25 ML VIAL ONE (04:02)
[2022-08-08] MEDS ORDERED: dilTIAZem HCL 50 MG/10 ML - 10 ML VIAL IVPUSH ONE ×3 (04:05→21:49)
[2022-08-08 04:31] LABS: ARTERIAL BLD GAS O2 SATURATION 96.9 % (95-98); ARTERIAL BLOOD GAS BASE EXCESS -3.1 mmol/L (-2-2); ARTERIAL BLOOD GAS PO2 84.5 mmHg (80-100)
[2022-08-08] MEDS ORDERED: dilTIAZem HCL 30 MG TABLET PO ONE (05:11)
[2022-08-08] MEDS ORDERED: PANTOPRAZOLE 40 MG TABLET PO ONE (09:50)
[2022-08-08] MEDS ORDERED: ENOXAPARIN NA (PORCINE) 40 MG/0.4 ML DISP.SYRIN SQ ONE (09:50)
[2022-08-08] MEDS ORDERED: AZITHROMYCIN IVPB 500 MG/250 ML BAG IVPB SCH (10:00)
[2022-08-08] MEDS: PANTOPRAZOLE 40 MG TABLET PO SCH (10:05)
[2022-08-08] MEDS: ENOXAPARIN NA (PORCINE) 40 MG/0.4 ML DISP.SYRIN SQ SCH (10:05)
[2022-08-08] MEDS ORDERED: VANCOMYCIN/WATER FOR INJ (PEG) 1,000 MG/200 ML BAG IVPB ONE ×2 (14:46→15:00)
[2022-08-08] MEDS ORDERED: CEFTRIAXONE 2 GM/100 ML BAG IVPB ONE (14:47)
[2022-08-08] MEDS: CEFTRIAXONE 2 GM in DEXTROSE 5%-WATER - 50 ML IVPB SCH (15:00)
[2022-08-08] MEDS ORDERED: AZITHROMYCIN IVPB 500 MG/250 ML BAG IVPB ONE (18:00)
[2022-08-08] MEDS: methylPREDNISolone NA SUCC 40 MG/1 ML VIAL IVPUSH SCH (18:00)
[2022-08-08] MEDS ORDERED: methylPREDNISolone NA SUCC 40 MG/1 ML VIAL ONE (18:00)
[2022-08-08] MEDS: AZITHROMYCIN IVPB 500 MG/250 ML BAG IVPB SCH (18:14)
[2022-08-08] MEDS ORDERED: dilTIAZem HCL 50 MG/10 ML - 10 ML VIAL ONE (21:52)
[2022-08-09] MEDS ORDERED: CEFTRIAXONE 1 GM in DEXTROSE 5%-WATER - 50 ML IVPB SCH (02:00)
[2022-08-09 08:37] LABS: BASO % 0.1 % (0-2.0); HEMATOCRIT 36.1 % (32.4-45.2); HEMOGLOBIN 11.8 GM/dL (10.7-15.3); LYMPH % 12.1 % (8-40); MCH 28.2 pg (25.7-33.7); MCHC 32.6 g/dl (32.0-36.0); MEAN CELL VOLUME 86.5 fl (80-96); MONO % 7.8 % (3.8-10.2); PLATELET COUNT 84 10^3/uL (134-434); RBC 4.18 M/mm3 (3.60-5.2); WHITE BLOOD COUNT 5.2 K/mm3 (4.0-10.0)
[2022-08-09 08:56] LABS: CALCIUM 8.6 mg/dL (8.5-10.1)
[2022-08-09 08:59] LABS: CREATININE 0.9 mg/dL (0.55-1.3)
[2022-08-09] MEDS: CEFTRIAXONE 2 GM in DEXTROSE 5%-WATER - 50 ML IVPB SCH (10:00)
[2022-08-09] MEDS: methylPREDNISolone NA SUCC 40 MG/1 ML VIAL IVPUSH SCH (10:00)
[2022-08-09] MEDS: ENOXAPARIN NA (PORCINE) 40 MG/0.4 ML DISP.SYRIN SQ SCH (10:00)
[2022-08-09] MEDS: PANTOPRAZOLE 40 MG TABLET PO SCH (10:00)
[2022-08-09] MEDS: AZITHROMYCIN IVPB 500 MG/250 ML BAG IVPB SCH (11:01)
[2022-08-09] MEDS: LEVALBUTEROL HCL 0.31 MG/3 ML VIAL.NEB IH SCH ×2 (15:00→20:39)
[2022-08-09 16:34] LABS: CALCIUM 8.9 mg/dL (8.5-10.1)
[2022-08-09 16:35] LABS: BLOOD UREA NITROGEN 20.2 mg/dL (7-18)
[2022-08-09 16:38] LABS: CREATININE 0.8 mg/dL (0.55-1.3)
[2022-08-09 16:39] LABS: TOT PROT 6.9 g/dl (6.4-8.2)
[2022-08-09 16:48] LABS: BILIRUBIN,TOTAL 0.4 mg/dL (0.2-1)
[2022-08-09 17:01] LABS: ALBUMIN 2.6 g/dl (3.4-5.0)
[2022-08-10] MEDS: LEVALBUTEROL HCL 0.31 MG/3 ML VIAL.NEB IH SCH ×3 (08:35→20:05)
[2022-08-10] MEDS: ENOXAPARIN NA (PORCINE) 40 MG/0.4 ML DISP.SYRIN SQ SCH (09:51)
[2022-08-10] MEDS: methylPREDNISolone NA SUCC 40 MG/1 ML VIAL IVPUSH SCH (09:51)
[2022-08-10] MEDS: PANTOPRAZOLE 40 MG TABLET PO SCH (09:51)
[2022-08-10] MEDS: CEFTRIAXONE 2 GM in DEXTROSE 5%-WATER - 50 ML IVPB SCH (09:51)
[2022-08-10] MEDS: AZITHROMYCIN IVPB 500 MG/250 ML BAG IVPB SCH (10:52)
[2022-08-11 06:01] LABS: PH,URINE 6.5 (5.0-8.0); URINE APPEARANCE CLEAR; URINE BILIRUBIN NEGATIVE (NEGATIVE); URINE COLOR YELLOW; URINE GLUCOSE (UA) NEGATIVE (NEGATIVE); URINE KETONE NEGATIVE (NEGATIVE); URINE LEUK ESTERASE NEGATIVE (NEGATIVE); URINE NITRITE NEGATIVE (NEGATIVE); URINE PROTEIN NEGATIVE (NEGATIVE)
[2022-08-11] MEDS: LEVALBUTEROL HCL 0.31 MG/3 ML VIAL.NEB IH SCH ×2 (08:30→13:42)
[2022-08-11] MEDS: PANTOPRAZOLE 40 MG TABLET PO SCH (09:25)
[2022-08-11] MEDS: CEFTRIAXONE 2 GM in DEXTROSE 5%-WATER - 50 ML IVPB SCH (09:25)
[2022-08-11] MEDS: ENOXAPARIN NA (PORCINE) 40 MG/0.4 ML DISP.SYRIN SQ SCH (09:26)
[2022-08-11] MEDS: AZITHROMYCIN IVPB 500 MG/250 ML BAG IVPB SCH (09:26)
[2022-08-11] MEDS: methylPREDNISolone NA SUCC 40 MG/1 ML VIAL IVPUSH SCH (09:26)
[2022-08-11] MEDS: APIXABAN 5 MG TABLET PO SCH ×2 (12:03→21:12)
[2022-08-12] MEDS: LEVALBUTEROL HCL 0.31 MG/3 ML VIAL.NEB IH SCH ×4 (00:19→20:48)
[2022-08-12] MEDS: AZITHROMYCIN IVPB 500 MG/250 ML BAG IVPB SCH (09:47)
[2022-08-12] MEDS: CEFTRIAXONE 2 GM in DEXTROSE 5%-WATER - 50 ML IVPB SCH (09:47)
[2022-08-12] MEDS: PANTOPRAZOLE 40 MG TABLET PO SCH (09:48)
[2022-08-12] MEDS: APIXABAN 5 MG TABLET PO SCH ×2 (09:48→22:06)
[2022-08-12] MEDS: methylPREDNISolone NA SUCC 40 MG/1 ML VIAL IVPUSH SCH (09:48)
[2022-08-12 11:44] LABS: BASO % 0.2 % (0-2.0); HEMATOCRIT 36.1 % (32.4-45.2); LYMPH % 17.3 % (8-40); MCH 28.2 pg (25.7-33.7); MCHC 33.2 g/dl (32.0-36.0); MEAN PLT VOLUME 9.9 fl (7.5-11.1); MONO % 7.4 % (3.8-10.2); NEUT % 75.1 % (42.8-82.8); PLATELET COUNT 148 10^3/uL (134-434); RBC 4.25 M/mm3 (3.60-5.2); WHITE BLOOD COUNT 5.4 K/mm3 (4.0-10.0)
[2022-08-12 12:05] LABS: BLOOD UREA NITROGEN 21.9 mg/dL (7-18); CALCIUM 8.6 mg/dL (8.5-10.1)
[2022-08-12 12:07] LABS: ALBUMIN 2.5 g/dl (3.4-5.0)
[2022-08-12 12:08] LABS: CREATININE 0.7 mg/dL (0.55-1.3)
[2022-08-12 12:10] LABS: BILIRUBIN,TOTAL 0.7 mg/dL (0.2-1); TOT PROT 6.3 g/dl (6.4-8.2)
[2022-08-12 15:07] LABS: ATYPICAL pANCA <1:20 titer (Neg:<1:20); C-ANCA <1:20 titer (Neg:<1:20)
[2022-08-12] MEDS: METOPROLOL TARTRATE 25 MG TABLET (FP) PO SCH (22:09)
[2022-08-13] MEDS: LEVALBUTEROL HCL 0.31 MG/3 ML VIAL.NEB IH SCH ×3 (08:10→20:53)
[2022-08-13] MEDS ORDERED: LEVALBUTEROL HCL 0.31 MG/3 ML VIAL.NEB IH ONE (08:21)
[2022-08-13] MEDS: APIXABAN 5 MG TABLET PO SCH ×2 (11:00→21:48)
[2022-08-13] MEDS: CEFTRIAXONE 2 GM in DEXTROSE 5%-WATER - 50 ML IVPB SCH (11:00)
[2022-08-13] MEDS: PANTOPRAZOLE 40 MG TABLET PO SCH (11:00)
[2022-08-13] MEDS: METOPROLOL TARTRATE 25 MG TABLET (FP) PO SCH ×2 (11:00→21:48)
[2022-08-13] MEDS: methylPREDNISolone NA SUCC 40 MG/1 ML VIAL IVPUSH SCH (11:00)
[2022-08-13 13:18] LABS: BASO % 0.2 % (0-2.0); EOS % 0.1 % (0-4.5); HEMATOCRIT 35.4 % (32.4-45.2); HEMOGLOBIN 11.7 GM/dL (10.7-15.3); LYMPH % 11.7 % (8-40); MCHC 33.1 g/dl (32.0-36.0); MEAN CELL VOLUME 84.6 fl (80-96); MEAN PLT VOLUME 9.8 fl (7.5-11.1); MONO % 6.7 % (3.8-10.2); NEUT % 81.3 % (42.8-82.8); PLATELET COUNT 181 10^3/uL (134-434); RBC 4.18 M/mm3 (3.60-5.2); RDW 14.8 % (11.6-15.6)
[2022-08-13 15:01] LABS: ALBUMIN 2.5 g/dl (3.4-5.0); BILIRUBIN,TOTAL 0.5 mg/dL (0.2-1); TOT PROT 6.4 g/dl (6.4-8.2)
[2022-08-13 15:06] LABS: BLOOD UREA NITROGEN 21.7 mg/dL (7-18); CREATININE 0.7 mg/dL (0.55-1.3)
[2022-08-14] MEDS: LEVALBUTEROL HCL 0.31 MG/3 ML VIAL.NEB IH SCH (08:35)
[2022-08-14 08:57] LABS: BLOOD UREA NITROGEN 20.7 mg/dL (7-18)
[2022-08-14 08:59] LABS: CALCIUM 9.1 mg/dL (8.5-10.1)
[2022-08-14 09:00] LABS: CREATININE 0.6 mg/dL (0.55-1.3)
[2022-08-14] MEDS: METOPROLOL TARTRATE 25 MG TABLET (FP) PO SCH ×2 (10:27→21:33)
[2022-08-14] MEDS: CEFTRIAXONE 2 GM in DEXTROSE 5%-WATER - 50 ML IVPB SCH (10:27)
[2022-08-14] MEDS: APIXABAN 5 MG TABLET PO SCH ×2 (10:28→21:33)
[2022-08-14] MEDS: PANTOPRAZOLE 40 MG TABLET PO SCH (10:28)
[2022-08-14] MEDS ORDERED: ACETAMINOPHEN 1000 MG/100 ML BAG IVPB ONE (20:25)
[2022-08-15 08:58] LABS: BLOOD UREA NITROGEN 20.5 mg/dL (7-18); CALCIUM 8.9 mg/dL (8.5-10.1)
[2022-08-15 09:02] LABS: CREATININE 0.7 mg/dL (0.55-1.3)
[2022-08-15] MEDS ORDERED: POLYETHYLENE GLYCOL (HEALTHYLAX) 3350 17 GM PACKET PO SCH (10:00)
[2022-08-15] MEDS: METOPROLOL TARTRATE 25 MG TABLET (FP) PO SCH ×2 (10:07→21:35)
[2022-08-15] MEDS: CEFTRIAXONE 2 GM in DEXTROSE 5%-WATER - 50 ML IVPB SCH (10:07)
[2022-08-15] MEDS: PANTOPRAZOLE 40 MG TABLET PO SCH (10:07)
[2022-08-15] MEDS: APIXABAN 5 MG TABLET PO SCH ×2 (10:07→21:35)
[2022-08-15 12:30] VITALS: BMI 23.2
[2022-08-15] MEDS: POLYETHYLENE GLYCOL (HEALTHYLAX) 3350 17 GM PACKET PO SCH ×2 (17:40→21:35)
[2022-08-16] MEDS: POLYETHYLENE GLYCOL (HEALTHYLAX) 3350 17 GM PACKET PO SCH ×3 (05:38→21:11)
[2022-08-16 11:16] LABS: BASO % 0.5 % (0-2.0); EOS % 0.7 % (0-4.5); HEMATOCRIT 33.6 % (32.4-45.2); HEMOGLOBIN 11.4 GM/dL (10.7-15.3); LYMPH % 13.9 % (8-40); MCH 28.7 pg (25.7-33.7); MCHC 33.9 g/dl (32.0-36.0); MEAN CELL VOLUME 84.6 fl (80-96); MEAN PLT VOLUME 8.1 fl (7.5-11.1); MONO % 6.2 % (3.8-10.2); NEUT % 78.7 % (42.8-82.8); PLATELET COUNT 231 10^3/uL (134-434); RBC 3.97 M/mm3 (3.60-5.2); RDW 14.6 % (11.6-15.6); RETICULOCYTES 2.65 % (0.5-1.5); WHITE BLOOD COUNT 4.1 K/mm3 (4.0-10.0)
[2022-08-16 11:17] LABS: BLOOD UREA NITROGEN 12.6 mg/dL (7-18); CALCIUM 8.6 mg/dL (8.5-10.1)
[2022-08-16 11:21] LABS: CREATININE 0.7 mg/dL (0.55-1.3)
[2022-08-16] MEDS: CEFTRIAXONE 2 GM in DEXTROSE 5%-WATER - 50 ML IVPB SCH (11:39)
[2022-08-16] MEDS: APIXABAN 5 MG TABLET PO SCH ×2 (11:40→21:11)
[2022-08-16] MEDS: METOPROLOL TARTRATE 25 MG TABLET (FP) PO SCH ×2 (11:40→21:11)
[2022-08-16] MEDS: PANTOPRAZOLE 40 MG TABLET PO SCH (11:40)
[2022-08-16] MEDS ORDERED: PEG 3350/NA SULF BICARB CL/KCL 4000 ML SOLN.RECON PO ONE (12:00)
[2022-08-16] MEDS ORDERED: IRON SUCROSE INJECTION 200 MG in SODIUM CHLORIDE 90 ML IVPB ONE (12:00)
[2022-08-17] MEDS: POLYETHYLENE GLYCOL (HEALTHYLAX) 3350 17 GM PACKET PO SCH (05:52)
[2022-08-17] MEDS: CEFTRIAXONE 2 GM in DEXTROSE 5%-WATER - 50 ML IVPB SCH (10:22)
[2022-08-17] MEDS: APIXABAN 5 MG TABLET PO SCH ×2 (10:36→22:00)
[2022-08-17] MEDS: METOPROLOL TARTRATE 25 MG TABLET (FP) PO SCH ×2 (10:36→22:00)
[2022-08-17] MEDS: PANTOPRAZOLE 40 MG TABLET PO SCH (10:36)
[2022-08-17] MEDS ORDERED: IRON SUCROSE INJECTION 200 MG in SODIUM CHLORIDE 90 ML IVPB ONE (18:06)
[2022-08-17] MEDS ORDERED: POTASSIUM CHLORIDE ORAL LIQUID 20 MEQ/15 ML PO ONE (18:07)
[2022-08-18 08:30] LABS: CALCIUM 8.3 mg/dL (8.5-10.1)
[2022-08-18 08:31] LABS: ALBUMIN 2.2 g/dl (3.4-5.0); BLOOD UREA NITROGEN 8.5 mg/dL (7-18)
[2022-08-18 08:34] LABS: CREATININE 0.7 mg/dL (0.55-1.3)
[2022-08-18 08:36] LABS: BILIRUBIN,TOTAL 0.7 mg/dL (0.2-1); TOT PROT 5.4 g/dl (6.4-8.2)
[2022-08-18] MEDS: APIXABAN 5 MG TABLET PO SCH ×2 (09:11→23:03)
[2022-08-18] MEDS: METOPROLOL TARTRATE 25 MG TABLET (FP) PO SCH (09:11)
[2022-08-18] MEDS: PANTOPRAZOLE 40 MG TABLET PO SCH (09:11)
[2022-08-18] MEDS: CEFTRIAXONE 2 GM in DEXTROSE 5%-WATER - 50 ML IVPB SCH (09:12)
[2022-08-18] MEDS ORDERED: METOPROLOL TARTRATE 5 MG/5 ML VIAL IVPUSH ONE (17:30)
[2022-08-18] MEDS ORDERED: ONDANSETRON 4 MG/2 ML VIAL IVPUSH ONE (20:22)
[2022-08-18] MEDS ORDERED: ACETAMINOPHEN 1000 MG/100 ML BAG IVPB ONE (20:24)
[2022-08-18 21:56] LABS: HEMATOCRIT 31.6 % (32.4-45.2); HEMOGLOBIN 10.6 GM/dL (10.7-15.3); MCH 28.4 pg (25.7-33.7); MCHC 33.5 g/dl (32.0-36.0); MEAN CELL VOLUME 84.8 fl (80-96); MEAN PLT VOLUME 7.9 fl (7.5-11.1); PLATELET COUNT 185 10^3/uL (134-434); RBC 3.72 M/mm3 (3.60-5.2); RDW 14.8 % (11.6-15.6); WHITE BLOOD COUNT 5.1 K/mm3 (4.0-10.0)
[2022-08-18 22:03] LABS: INR 1.76 (0.83-1.09); PROTHROMBIN TIME (PATIENT) 20.3 SEC (9.7-13.0)
[2022-08-18 22:05] LABS: ACTIVATED PTT 35.1 SECONDS (25.2-36.5)
[2022-08-18 22:15] LABS: BLOOD UREA NITROGEN 9.8 mg/dL (7-18); CALCIUM 8.5 mg/dL (8.5-10.1)
[2022-08-18 22:17] LABS: MAGNESIUM 1.8 mg/dL (1.8-2.4)
[2022-08-18 22:19] LABS: CREATININE 0.8 mg/dL (0.55-1.3); PHOSPHOROUS 2.2 mg/dL (2.5-4.9)
[2022-08-18] MEDS: METOPROLOL TARTRATE 50 MG TABLET (FP) PO SCH (23:03)
[2022-08-18] MEDS ORDERED: POTASSIUM PHOSPHATE 10 MM in SODIUM CHLORIDE 250 ML IVPB ONE (23:48)
[2022-08-19 08:24] LABS: BASO % 0.7 % (0-2.0); EOS % 1.7 % (0-4.5); HEMOGLOBIN 10.9 GM/dL (10.7-15.3); LYMPH % 19.7 % (8-40); MCH 28.5 pg (25.7-33.7); MCHC 33.1 g/dl (32.0-36.0); MEAN CELL VOLUME 86.3 fl (80-96); NEUT % 66.9 % (42.8-82.8); PLATELET COUNT 180 10^3/uL (134-434); RBC 3.82 M/mm3 (3.60-5.2); RDW 15.3 % (11.6-15.6)
[2022-08-19 08:36] LABS: CALCIUM 8.5 mg/dL (8.5-10.1)
[2022-08-19 08:38] LABS: ALBUMIN 2.3 g/dl (3.4-5.0); BLOOD UREA NITROGEN 9.5 mg/dL (7-18)
[2022-08-19 08:39] LABS: CREATININE 0.7 mg/dL (0.55-1.3)
[2022-08-19 08:41] LABS: BILIRUBIN,TOTAL 0.6 mg/dL (0.2-1); TOT PROT 5.7 g/dl (6.4-8.2)
[2022-08-19 10:12] VITALS: RESP 18
[2022-08-19] MEDS: PANTOPRAZOLE 40 MG TABLET PO SCH (10:13)
[2022-08-19] MEDS: predniSONE 10 MG TABLET (UD) PO SCH (10:13)
[2022-08-19] MEDS: APIXABAN 5 MG TABLET PO SCH ×2 (10:13→21:34)
[2022-08-19] MEDS: POLYETHYLENE GLYCOL (HEALTHYLAX) 3350 17 GM PACKET PO SCH (10:13)
[2022-08-19] MEDS: METOPROLOL TARTRATE 50 MG TABLET (FP) PO SCH ×2 (11:14→21:34)
[2022-08-19 11:55] LABS: PH,URINE 6.5 (5.0-8.0); URINE APPEARANCE CLEAR; URINE BILIRUBIN NEGATIVE (NEGATIVE); URINE COLOR YELLOW; URINE GLUCOSE (UA) NEGATIVE (NEGATIVE); URINE KETONE NEGATIVE (NEGATIVE); URINE LEUK ESTERASE NEGATIVE (NEGATIVE); URINE NITRITE NEGATIVE (NEGATIVE); URINE PROTEIN NEGATIVE (NEGATIVE); URINE UROBILINOGEN 0.2 mg/dL (0.2-1.0)
[2022-08-20] MEDS: predniSONE 10 MG TABLET (UD) PO SCH (09:54)
[2022-08-20] MEDS: POLYETHYLENE GLYCOL (HEALTHYLAX) 3350 17 GM PACKET PO SCH (09:54)
[2022-08-20] MEDS: PANTOPRAZOLE 40 MG TABLET PO SCH (09:54)
[2022-08-20] MEDS: METOPROLOL TARTRATE 50 MG TABLET (FP) PO SCH ×2 (09:54→21:26)
[2022-08-20] MEDS: APIXABAN 5 MG TABLET PO SCH ×2 (09:54→21:26)
[2022-08-21] MEDS: METOPROLOL TARTRATE 50 MG TABLET (FP) PO SCH (09:29)
[2022-08-21] MEDS: predniSONE 10 MG TABLET (UD) PO SCH (09:29)
[2022-08-21] MEDS: APIXABAN 5 MG TABLET PO SCH (09:30)
[2022-08-21] MEDS: POLYETHYLENE GLYCOL (HEALTHYLAX) 3350 17 GM PACKET PO SCH (09:30)
[2022-08-21] MEDS: PANTOPRAZOLE 40 MG TABLET PO SCH (09:30)
[2022-08-21 11:49] VITALS: BP 110/67; PULSE 77; TEMP 98.4
== END 2022-08-21 12:09 | disposition home or self-care (01) | DRG 871 ==
LOC: JER 16:00 → JERBED 08-08 00:19 → J4W 08-09 00:20
PROVIDERS: ADMIT Internal Medicine; ATTEND Family Medicine
DX: A40.9 Streptococcal sepsis, unspecified (principal); G93.41 Metabolic encephalopathy; J18.9 Pneumonia, unspecified organism; J96.01 Acute respiratory failure with hypoxia; R04.2 Hemoptysis; I48.91 Unspecified atrial fibrillation; M15.9 Polyosteoarthritis, unspecified; K59.00 Constipation, unspecified; K21.9 Gastro-esophageal reflux disease without esophagitis; R31.29 Other microscopic hematuria; R76.8 Other specified abnormal immunological findings in serum
CPT/HCPCS: 0241U-QW; 36415; 36600; 70450-TC; 71045-TC-FY; 71250-TC; 72125-TC; 72170-TC-FY; 73030-TC-RT-FY; 74018-TC-FY; 74177-TC; 76700-TC; 80048; 80053; 81003; 82378; 82550; 82553; 82728; 82803; 82962; 83520; 83540; 83550; 83605; 83690; 83735; 84100; 84484; 85025; 85027; 85045; 85610; 85651; 85730; 86038; 86140; 86160; 86225; 86256; 86850; 86900; 86901; 87040; 87077; 87086; 87186; 87899; 93005; 93010; 93306-TC; 97116-GP; 97162-GP; 99285-25; C1887; J1756; Q9967

== ENCOUNTER 2023-04-29 17:55 | Emergency (ER) | payer OTHER ==
[2023-04-29 18:11] VITALS: RESP 18; TEMP 97.5; BMI 22.1
[2023-04-29] MEDS ORDERED: ACETAMINOPHEN 1000 MG/100 ML BAG IVPB ONE (19:02)
[2023-04-29 19:40] LABS: BASO % 0.7 % (0-2.0); EOS % 0.1 % (0-4.5); HEMATOCRIT 29.2 % (32.4-45.2); HEMOGLOBIN 9.5 GM/dL (10.7-15.3); LYMPH % 18.9 % (8-40); MCH 26.7 pg (25.7-33.7); MCHC 32.4 g/dl (32.0-36.0); MEAN CELL VOLUME 82.5 fl (80-96); MEAN PLT VOLUME 9.6 fl (7.5-11.1); MONO % 17.3 % (3.8-10.2); PLATELET COUNT 121 10^3/uL (134-434); RBC 3.54 M/mm3 (3.60-5.2); RDW 17.6 % (11.6-15.6); WHITE BLOOD COUNT 2.4 K/mm3 (4.0-10.0)
[2023-04-29 19:41] VITALS: BP 120/73; PULSE 80
[2023-04-29 19:49] LABS: POTASSIUM 3.6 mmol/L (3.5-5.1)
[2023-04-29 19:51] LABS: BLOOD UREA NITROGEN 15.4 mg/dL (7-18); CALCIUM 8.9 mg/dL (8.5-10.1)
[2023-04-29 19:54] LABS: CREATININE 0.9 mg/dL (0.55-1.3)
[2023-04-29 19:56] LABS: BILIRUBIN,TOTAL 0.8 mg/dL (0.2-1); TOT PROT 7.7 g/dl (6.4-8.2)
[2023-04-29] MEDS ORDERED: LIDOCAINE 5% TOPICAL PATCH TP ONE (20:46)
[2023-04-29] MEDS ORDERED: KETOROLAC TROMETHAMINE 15 MG/ML VIAL IVPUSH ONE (20:47)
[2023-04-29] MEDS ORDERED: ACETAMINOPHEN INJECTION 100 ML IVPB ONE (21:03)
[2023-04-29] MEDS ORDERED: KETOROLAC TROMETHAMINE 15 MG/ML VIAL ONE (21:30)
[2023-04-29] MEDS ORDERED: LIDOCAINE 5% TOPICAL PATCH ONE (21:30)
== END 2023-04-29 21:54 | disposition home or self-care (01) ==
LOC: JER 17:55
PROC: 3E033NZ Introduction of Analgesics, Hypnotics, Sedatives into Peripheral Vein, Percutaneous Approach (ICD-10-PCS; principal; 2023-04-29)
PROC: 3E0333Z Introduction of Anti-inflammatory into Peripheral Vein, Percutaneous Approach (ICD-10-PCS; 2023-04-29)
DX: M25.551 Pain in right hip (principal); M79.601 Pain in right arm; M79.604 Pain in right leg; R06.02 Shortness of breath; M79.18 Myalgia, other site; M25.511 Pain in right shoulder; W01.0XXA Fall on same level from slipping, tripping and stumbling without subsequent striking against object, initial encounter
CPT/HCPCS: 36415; 70450-TC; 71046-TC-FY; 72125-TC; 72131-TC; 72170-TC-FY; 73502-TC-RT-FY; 73590-TC-LT-FY; 73590-TC-RT-FY; 80053; 84484; 85025; 93005; 93010; 96374; 96375; 99285-25

== ENCOUNTER 2023-05-08 19:52 | Observation (INO) | payer OTHER ==
[2023-05-08] MEDS ORDERED: ACETAMINOPHEN 1000 MG/100 ML BAG IVPB ONE (20:59)
[2023-05-08] MEDS ORDERED: ACETAMINOPHEN INJECTION 100 ML IVPB ONE (21:05)
[2023-05-08 21:21] LABS: HEMATOCRIT 30.2 % (32.4-45.2); HEMOGLOBIN 9.7 G/dL (10.7-15.3); MCH 27.5 pg (25.7-33.7); MCHC 32.1 g/dl (32.0-36.0); MEAN CELL VOLUME 85.7 fl (80-96); MEAN PLT VOLUME 10.4 fl (7.5-11.1); PLATELET COUNT 118.3 10^3/uL (134-434); RBC 3.52 10^6/uL (3.60-5.2); RDW 17.3 % (11.6-15.6); WHITE BLOOD COUNT 2.7 10^3/uL (4.0-10.8)
[2023-05-08 21:34] LABS: INR 1.15 (0.83-1.09); PROTHROMBIN TIME (PATIENT) 13.3 SEC (9.7-13.0)
[2023-05-08 21:35] LABS: ALBUMIN 3.3 g/dl (3.4-5.0); BILIRUBIN,TOTAL 0.8 mg/dl (0.2-1); BLOOD UREA NITROGEN 16.3 mg/dl (7-18); CALCIUM 8.7 mg/dl (8.5-10.1); CREATININE 0.8 mg/dl (0.6-1.3); SGOT/AST 29.5 U/L (15-37); SGPT/ALT 15.9 U/L (7-52); TOT PROT 6.9 g/dl (6.4-8.2)
[2023-05-08 21:37] LABS: POTASSIUM 2.6 mmol/L (3.5-5.1)
[2023-05-08] MEDS ORDERED: POTASSIUM CHLORIDE TABS 20 MEQ TABLET.ER (FP) PO ONE ×2 (21:50→21:55)
[2023-05-08 23:07] LABS: PLATELET ESTIMATE DECREASED
[2023-05-09 01:56] LABS: EPI CELLS 33 /uL (0-25.1); HYALINE CASTS 1 /uL (0-3.1); URINE APPEARANCE CLEAR; URINE BACTERIA 69 /uL (0-1359); URINE BILIRUBIN NEGATIVE (NEGATIVE); URINE COLOR YELLOW; URINE GLUCOSE (UA) NEGATIVE (NEGATIVE); URINE KETONE NEGATIVE (NEGATIVE); URINE LEUK ESTERASE TRACE (NEGATIVE); URINE NITRITE NEGATIVE (NEGATIVE); URINE PROTEIN TRACE (NEGATIVE); URINE RBC 23 /uL (0-23.9); URINE WBC 25 /uL (0-25.8)
[2023-05-09 03:05] VITALS: BMI 21.9
[2023-05-09] MEDS ORDERED: DEXTROSE 5%-0.45% SALINE 1,000 ML IV SCH (04:15)
[2023-05-09] MEDS ORDERED: ACETAMINOPHEN 1000 MG/100 ML BAG IVPB PRN (05:48)
[2023-05-09] MEDS: KCL 10 MEQ IVPB 10 MEQ/100 ML INFUS.BAG IVPB SCH ×5 (05:55→11:54)
[2023-05-09] MEDS ORDERED: LACTATED RINGERS SOLUTION 1,000 ML/1,000 ML INFUS.BAG IV SCH (08:00)
[2023-05-09] MEDS: PANTOPRAZOLE 40 MG TABLET PO SCH (09:28)
[2023-05-09] MEDS: metoPROLOL SUCCINATE 25 MG TAB.SR.24H (FP) PO SCH ×2 (09:28→21:49)
[2023-05-09] MEDS: POTASSIUM CHLORIDE ORAL LIQUID 20 MEQ/15 ML PO SCH ×2 (09:29→21:48)
[2023-05-09] MEDS: APIXABAN 5 MG TABLET PO SCH (09:29)
[2023-05-09 15:05] LABS: BASO % 0.7 % (0-2.0); EOS % 0.1 % (0-4.5); HEMATOCRIT 28.6 % (32.4-45.2); HEMOGLOBIN 9.2 GM/dL (10.7-15.3); LYMPH % 21.8 % (8-40); MCH 26.1 pg (25.7-33.7); MCHC 32.3 g/dl (32.0-36.0); MEAN CELL VOLUME 80.9 fl (80-96); MEAN PLT VOLUME 9.6 fl (7.5-11.1); MONO % 18.7 % (3.8-10.2); NEUT % 58.7 % (42.8-82.8); PLATELET COUNT 102 10^3/uL (134-434); RBC 3.53 M/mm3 (3.60-5.2); WHITE BLOOD COUNT 2.2 K/mm3 (4.0-10.0)
[2023-05-09] MEDS: POLYETHYLENE GLYCOL (HEALTHYLAX) 3350 17 GM PACKET PO SCH (17:46)
[2023-05-09 23:16] LABS: BLOOD UREA NITROGEN 9.6 mg/dl (7-18); CALCIUM 8.5 mg/dl (8.5-10.1); CREATININE 0.7 mg/dl (0.6-1.3); POTASSIUM 4.3 mmol/L (3.5-5.1)
[2023-05-10 09:04] LABS: BLOOD UREA NITROGEN 9.7 mg/dl (7-18); CALCIUM 8.9 mg/dl (8.5-10.1); CREATININE 0.7 mg/dl (0.6-1.3); MAGNESIUM 2.1 mg/dL (1.8-2.4); PHOSPHOROUS 3.19 (2.5-4.9); POTASSIUM 4.7 mmol/L (3.5-5.1)
[2023-05-10] MEDS: APIXABAN 5 MG TABLET PO SCH (10:15)
[2023-05-10] MEDS: PANTOPRAZOLE 40 MG TABLET PO SCH (10:15)
[2023-05-10] MEDS: POLYETHYLENE GLYCOL (HEALTHYLAX) 3350 17 GM PACKET PO SCH (10:15)
[2023-05-10] MEDS: metoPROLOL SUCCINATE 25 MG TAB.SR.24H (FP) PO SCH ×2 (10:15→22:21)
[2023-05-10 10:37] LABS: BASO % 0.6 % (0-2.0); EOS % 0.1 % (0-4.5); HEMATOCRIT 27.2 % (32.4-45.2); LYMPH % 30.8 % (8-40); MCH 27.2 pg (25.7-33.7); MEAN CELL VOLUME 82.5 fl (80-96); MEAN PLT VOLUME 9.9 fl (7.5-11.1); MONO % 13.2 % (3.8-10.2); NEUT % 55.3 % (42.8-82.8); PLATELET COUNT 89 10^3/uL (134-434); RDW 17.3 % (11.6-15.6); WHITE BLOOD COUNT 2.5 K/mm3 (4.0-10.0)
[2023-05-10 12:58] LABS: RETICULOCYTES 1.22 % (0.5-1.5)
[2023-05-11] MEDS ORDERED: APIXABAN 5 MG TABLET PO SCH (07:52)
[2023-05-11 08:03] LABS: BLOOD UREA NITROGEN 10.2 mg/dl (7-18); CALCIUM 8.8 mg/dl (8.5-10.1); CREATININE 0.7 mg/dl (0.6-1.3); POTASSIUM 3.7 mmol/L (3.5-5.1)
[2023-05-11 08:56] LABS: BASO % 0.7 % (0-2.0); EOS % 0.1 % (0-4.5); LYMPH % 28.3 % (8-40); MCH 26.5 pg (25.7-33.7); MCHC 32.4 g/dl (32.0-36.0); MEAN CELL VOLUME 81.8 fl (80-96); MEAN PLT VOLUME 10.2 fl (7.5-11.1); MONO % 14.3 % (3.8-10.2); NEUT % 56.6 % (42.8-82.8); PLATELET COUNT 92 10^3/uL (134-434); RBC 3.42 M/mm3 (3.60-5.2); RDW 17.1 % (11.6-15.6); WHITE BLOOD COUNT 2.4 K/mm3 (4.0-10.0)
[2023-05-11] MEDS ORDERED: PEG 3350/NA SULF BICARB CL/KCL 4000 ML SOLN.RECON PO ONE ×2 (09:00)
[2023-05-11] MEDS: POLYETHYLENE GLYCOL (HEALTHYLAX) 3350 17 GM PACKET PO SCH (10:22)
[2023-05-11] MEDS: APIXABAN 2.5 MG TABLET PO SCH ×2 (10:23→21:15)
[2023-05-11] MEDS: metoPROLOL SUCCINATE 25 MG TAB.SR.24H (FP) PO SCH ×2 (10:23→21:15)
[2023-05-11] MEDS: PANTOPRAZOLE 40 MG TABLET PO SCH (10:24)
[2023-05-11] MEDS ORDERED: ACETAMINOPHEN 1000 MG/100 ML BAG IVPB ONE (12:40)
[2023-05-11] MEDS ORDERED: ACETAMINOPHEN 325 MG TABLET (FP) PO PRN (12:40)
[2023-05-12] MEDS: metoPROLOL SUCCINATE 25 MG TAB.SR.24H (FP) PO SCH ×2 (09:41→21:07)
[2023-05-12] MEDS: POLYETHYLENE GLYCOL (HEALTHYLAX) 3350 17 GM PACKET PO SCH (09:41)
[2023-05-12] MEDS: APIXABAN 2.5 MG TABLET PO SCH (09:41)
[2023-05-12] MEDS: PANTOPRAZOLE 40 MG TABLET PO SCH (09:41)
[2023-05-12] MEDS: LIDOCAINE 5% TOPICAL PATCH TP SCH (09:41)
[2023-05-12] MEDS ORDERED: IRON SUCROSE INJECTION 200 MG in SODIUM CHLORIDE 90 ML IVPB ONE (11:30)
[2023-05-12] MEDS: LIDOCAINE PATCH REMOVAL MC SCH (21:07)
[2023-05-13 08:59] LABS: ALBUMIN 3.5 g/dl (3.4-5.0); BILIRUBIN,TOTAL 0.8 mg/dl (0.2-1); BLOOD UREA NITROGEN 12.6 mg/dl (7-18); CALCIUM 9.1 mg/dl (8.5-10.1); CREATININE 0.8 mg/dl (0.6-1.3); POTASSIUM 3.7 mmol/L (3.5-5.1); SGOT/AST 22.1 U/L (15-37); SGPT/ALT 11.3 U/L (7-52); TOT PROT 7.6 g/dl (6.4-8.2)
[2023-05-13] MEDS: APIXABAN 2.5 MG TABLET PO SCH ×2 (09:41→21:08)
[2023-05-13] MEDS: metoPROLOL SUCCINATE 25 MG TAB.SR.24H (FP) PO SCH ×2 (09:41→21:07)
[2023-05-13] MEDS: LIDOCAINE 5% TOPICAL PATCH TP SCH (09:42)
[2023-05-13] MEDS: PANTOPRAZOLE 40 MG TABLET PO SCH (09:42)
[2023-05-13 11:58] LABS: BASO % 0.7 % (0-2.0); HEMATOCRIT 31.4 % (32.4-45.2); HEMOGLOBIN 9.7 GM/dL (10.7-15.3); LYMPH % 28.5 % (8-40); MCHC 31.1 g/dl (32.0-36.0); MEAN CELL VOLUME 83.8 fl (80-96); MEAN PLT VOLUME 11.5 fl (7.5-11.1); MONO % 8.8 % (3.8-10.2); PLATELET COUNT 115 10^3/uL (134-434); RBC 3.74 M/mm3 (3.60-5.2); RDW 17.2 % (11.6-15.6); WHITE BLOOD COUNT 2.5 K/mm3 (4.0-10.0)
[2023-05-13] MEDS: POLYETHYLENE GLYCOL (HEALTHYLAX) 3350 17 GM PACKET PO SCH (16:57)
[2023-05-13] MEDS: LIDOCAINE PATCH REMOVAL MC SCH (21:08)
[2023-05-14] MEDS: APIXABAN 2.5 MG TABLET PO SCH (09:36)
[2023-05-14] MEDS: metoPROLOL SUCCINATE 25 MG TAB.SR.24H (FP) PO SCH (09:36)
[2023-05-14] MEDS: PANTOPRAZOLE 40 MG TABLET PO SCH (09:36)
[2023-05-14 09:45] VITALS: BP 124/70; PULSE 82; RESP 17; TEMP 98.4
== END 2023-05-14 16:50 | disposition home health service (06) ==
LOC: FER 19:52 → FM/S 05-09 02:05
PROVIDERS: ADMIT Internal Medicine; ATTEND Family Medicine
PROC: 3E033NZ Introduction of Analgesics, Hypnotics, Sedatives into Peripheral Vein, Percutaneous Approach (ICD-10-PCS; principal; 2023-05-09)
PROC: 3E033GC Introduction of Other Therapeutic Substance into Peripheral Vein, Percutaneous Approach (ICD-10-PCS; 2023-05-09)
PROC: 3E0337Z Introduction of Electrolytic and Water Balance Substance into Peripheral Vein, Percutaneous Approach (ICD-10-PCS; 2023-05-09)
DX: S70.01XA Contusion of right hip, initial encounter (principal); I48.91 Unspecified atrial fibrillation; W01.0XXA Fall on same level from slipping, tripping and stumbling without subsequent striking against object, initial encounter; Y93.89 Activity, other specified; Y92.008 Other place in unspecified non-institutional (private) residence as the place of occurrence of the external cause; K21.9 Gastro-esophageal reflux disease without esophagitis; M19.90 Unspecified osteoarthritis, unspecified site; R19.00 Intra-abdominal and pelvic swelling, mass and lump, unspecified site; R42 Dizziness and giddiness; K76.0 Fatty (change of) liver, not elsewhere classified; Z90.49 Acquired absence of other specified parts of digestive tract; Z79.01 Long term (current) use of anticoagulants; D61.818 Other pancytopenia; E87.6 Hypokalemia; R29.6 Repeated falls; D64.9 Anemia, unspecified; Z88.0 Allergy status to penicillin; K59.00 Constipation, unspecified; K62.89 Other specified diseases of anus and rectum; Z88.5 Allergy status to narcotic agent; M25.551 Pain in right hip; Z87.81 Personal history of (healed) traumatic fracture
CPT/HCPCS: 36415; 71045-TC-FY; 71250-TC; 73502-TC-RT-FY; 73552-TC-RT-FY; 73700-TC-RT; 74177-TC; 80048; 80053; 81003; 82272; 82378; 82607; 82728; 82746; 83540; 83550; 83735; 84100; 84466; 85025; 85027; 85045; 85610; 86301; 86304; 87086; 93005; 96361; 96365; 96366; 96367; 96375; 96376; 97116-GP; 97162-GP; 99285-25; G0378; J1756; Q9967

== ENCOUNTER 2023-06-07 11:41 | Inpatient (IN) | payer OTHER ==
[2023-06-07] MEDS ORDERED: SODIUM CHLORIDE IV ONE (12:03)
[2023-06-07] MEDS ORDERED: VANCOMYCIN 1,000 MG in DEXTROSE 5%-WATER - 250 ML IVPB ONE (12:03)
[2023-06-07] MEDS ORDERED: PIPERACILLIN/TAZOBACTAM 4.5 GM VIAL IVPB ONE (12:03)
[2023-06-07] MEDS ORDERED: ACETAMINOPHEN 1000 MG/100 ML BAG IVPB ONE (12:04)
[2023-06-07] MEDS ORDERED: ACETAMINOPHEN INJECTION 100 ML IVPB ONE (12:04)
[2023-06-07] MEDS ORDERED: PIPERACILLIN/TAZOB 4.5 GM 4.5 GM/100 ML BAG IVPB ONE (12:41)
[2023-06-07] MEDS ORDERED: VANCOMYCIN 1 GRAM (PRE-DOCKED) 1,000 MG/250 ML BAG IVPB ONE (12:42)
[2023-06-07 12:56] LABS: VENOUS BASE EXCESS -5.7 mmol/L (-2-2); VENOUS O2 SATURATION 40.7 % (70-80); VENOUS PCO2 36.4 mmHg (38-52); VENOUS PH 7.343 (7.310-7.410)
[2023-06-07 13:19] LABS: BASO % 0.5 % (0-2.0); HEMATOCRIT 28.9 % (32.4-45.2); HEMOGLOBIN 8.9 GM/dL (10.7-15.3); MCH 26.2 pg (25.7-33.7); MCHC 30.9 g/dl (32.0-36.0); MEAN CELL VOLUME 84.7 fl (80-96); MEAN PLT VOLUME 11.4 fl (7.5-11.1); MONO % 6.7 % (3.8-10.2); NEUT % 81.8 % (42.8-82.8); PLATELET COUNT 73 10^3/uL (134-434); RBC 3.41 M/mm3 (3.60-5.2); RDW 18.4 % (11.6-15.6); WHITE BLOOD COUNT 4.6 K/mm3 (4.0-10.0)
[2023-06-07 13:26] LABS: EPI CELLS 20 /uL (0-25.1); HYALINE CASTS 2 /uL (0-3.1); URINE APPEARANCE CLEAR; URINE BACTERIA 5 /uL (0-1359); URINE BILIRUBIN 1+ (NEGATIVE); URINE COLOR DK YELLOW; URINE GLUCOSE (UA) NEGATIVE (NEGATIVE); URINE KETONE TRACE (NEGATIVE); URINE LEUK ESTERASE NEGATIVE (NEGATIVE); URINE NITRITE NEGATIVE (NEGATIVE); URINE PROTEIN 3+ (NEGATIVE); URINE RBC 56 /uL (0-23.9); URINE WBC 36 /uL (0-25.8)
[2023-06-07 13:29] LABS: LACTIC ACID 2.8 mmol/L (0.4-2.0)
[2023-06-07] MEDS ORDERED: METOPROLOL TARTRATE 5 MG/5 ML VIAL IVPUSH ONE (13:29)
[2023-06-07] MEDS ORDERED: METOPROLOL TARTRATE 5 MG/5 ML VIAL ONE (13:34)
[2023-06-07 13:44] LABS: CHLORIDE 112 mmol/L (98-107); POTASSIUM 3.4 mmol/L (3.5-5.1); SODIUM 143 mmol/L (136-145)
[2023-06-07 13:46] LABS: CALCIUM 7.7 mg/dL (8.5-10.1)
[2023-06-07 13:47] LABS: ALBUMIN 2.5 g/dl (3.4-5.0); ANION GAP 10 MMOL/L (8-16); BLOOD UREA NITROGEN 18.6 mg/dL (7-18); CO2 21 mmol/L (21-32); GLUCOSE,RANDOM 103 mg/dL (74-106)
[2023-06-07 13:49] LABS: SGPT/ALT 18 U/L (13-61)
[2023-06-07 13:50] LABS: SGOT/AST 34 U/L (15-37)
[2023-06-07 13:51] LABS: BILIRUBIN,TOTAL 1.2 mg/dL (0.2-1); TOT PROT 6.4 g/dl (6.4-8.2)
[2023-06-07 13:52] LABS: ALK PHOS 51 U/L (45-117)
[2023-06-07 13:58] LABS: ACTIVATED PTT 32.8 SECONDS (25.2-36.5)
[2023-06-07 14:03] LABS: INR 1.5 (0.83-1.09); PROTHROMBIN TIME (PATIENT) 17.3 SEC (9.7-13.0)
[2023-06-07] MEDS ORDERED: KCL 10 MEQ IVPB 10 MEQ/100 ML INFUS.BAG IVPB SCH (16:15)
[2023-06-07] MEDS ORDERED: KCL 10 MEQ IVPB 10 MEQ/100 ML INFUS.BAG IVPB ONE (16:35)
[2023-06-07 16:50] LABS: MAGNESIUM 1.9 mg/dL (1.8-2.4)
[2023-06-07] MEDS ORDERED: VANCOMYCIN 1,000 MG in DEXTROSE 5%-WATER - 250 ML IVPB SCH (19:00)
[2023-06-07] MEDS: metoPROLOL SUCCINATE 25 MG TAB.SR.24H (FP) PO SCH (21:49)
[2023-06-08] MEDS: PIPERACILLIN/TAZOB 3.375 GM 3.375 GM in DEXTROSE 5%-WATER - 50 ML IVPB SCH ×2 (01:20→09:55)
[2023-06-08] MEDS ORDERED: PIPERACILLIN/TAZOB 3.375 GM 3.375 GM in DEXTROSE 5%-WATER - 50 ML IVPB SCH (02:00)
[2023-06-08 06:57] LABS: BASO % 0.2 % (0-2.0); HEMATOCRIT 27.4 % (32.4-45.2); HEMOGLOBIN 8.6 GM/dL (10.7-15.3); LYMPH % 16.3 % (8-40); MCH 26.2 pg (25.7-33.7); MCHC 31.6 g/dl (32.0-36.0); MEAN CELL VOLUME 83.2 fl (80-96); MEAN PLT VOLUME 10.4 fl (7.5-11.1); MONO % 7.9 % (3.8-10.2); NEUT % 75.6 % (42.8-82.8); PLATELET COUNT 58 10^3/uL (134-434); RBC 3.29 M/mm3 (3.60-5.2); RDW 18.5 % (11.6-15.6); WHITE BLOOD COUNT 2.4 K/mm3 (4.0-10.0)
[2023-06-08 07:09] LABS: POTASSIUM 3.7 mmol/L (3.5-5.1)
[2023-06-08 07:17] LABS: ALBUMIN 2.4 g/dl (3.4-5.0); CALCIUM 7.8 mg/dL (8.5-10.1)
[2023-06-08 07:18] LABS: BLOOD UREA NITROGEN 15.9 mg/dL (7-18)
[2023-06-08 07:21] LABS: CREATININE 0.8 mg/dL (0.55-1.3)
[2023-06-08 07:22] LABS: BILIRUBIN,TOTAL 1.2 mg/dL (0.2-1); TOT PROT 6.1 g/dl (6.4-8.2)
[2023-06-08] MEDS: metoPROLOL SUCCINATE 25 MG TAB.SR.24H (FP) PO SCH ×2 (09:54→21:53)
[2023-06-08] MEDS: PANTOPRAZOLE 40 MG TABLET PO SCH (09:55)
[2023-06-08] MEDS ORDERED: VANCOMYCIN/WATER FOR INJ (PEG) 1,000 MG/200 ML BAG IVPB ONE (12:00)
[2023-06-08] MEDS: METOPROLOL TARTRATE 5 MG/5 ML VIAL IVPUSH PRN (16:12)
[2023-06-08] MEDS: CEFEPIME 1 GM in DEXTROSE 5%-WATER 100 ML IVPB SCH (16:48)
[2023-06-08] MEDS: methylPREDNISolone NA SUCC 40 MG/1 ML VIAL IVPUSH SCH (17:01)
[2023-06-08] MEDS: VANCOMYCIN/WATER FOR INJ (PEG) 1,000 MG/200 ML BAG IVPB SCH (21:52)
[2023-06-09] MEDS ORDERED: VANCOMYCIN/WATER FOR INJ (PEG) 1,000 MG/200 ML BAG IVPB SCH
[2023-06-09] MEDS: CEFEPIME 1 GM in DEXTROSE 5%-WATER 100 ML IVPB SCH ×3 (01:24→17:22)
[2023-06-09] MEDS: VANCOMYCIN/WATER FOR INJ (PEG) 1,000 MG/200 ML BAG IVPB SCH ×2 (10:15→22:11)
[2023-06-09] MEDS: metoPROLOL SUCCINATE 25 MG TAB.SR.24H (FP) PO SCH ×3 (10:16→22:11)
[2023-06-09] MEDS: methylPREDNISolone NA SUCC 40 MG/1 ML VIAL IVPUSH SCH (10:16)
[2023-06-09] MEDS: PANTOPRAZOLE 40 MG TABLET PO SCH (10:16)
[2023-06-09] MEDS ORDERED: SODIUM CHLORIDE 0.45% 1,000 ML IV SCH (15:30)
[2023-06-09] MEDS: HEPARIN NA (PORCINE) 5,000 UNITS/ML 1ML VIAL SQ SCH (22:10)
[2023-06-10] MEDS: CEFEPIME 1 GM in DEXTROSE 5%-WATER 100 ML IVPB SCH ×3 (01:43→17:06)
[2023-06-10] MEDS: metoPROLOL SUCCINATE 25 MG TAB.SR.24H (FP) PO SCH ×3 (06:20→22:16)
[2023-06-10] MEDS: HEPARIN NA (PORCINE) 5,000 UNITS/ML 1ML VIAL SQ SCH ×2 (09:03→22:16)
[2023-06-10] MEDS: PANTOPRAZOLE 40 MG TABLET PO SCH (09:03)
[2023-06-10] MEDS: methylPREDNISolone NA SUCC 40 MG/1 ML VIAL IVPUSH SCH (09:03)
[2023-06-10] MEDS: VANCOMYCIN/WATER FOR INJ (PEG) 1,000 MG/200 ML BAG IVPB SCH (09:03)
[2023-06-10 09:47] LABS: POTASSIUM 3.4 mmol/L (3.5-5.1)
[2023-06-10 09:49] LABS: CALCIUM 7.4 mg/dL (8.5-10.1)
[2023-06-10 09:50] LABS: BLOOD UREA NITROGEN 22.1 mg/dL (7-18); MAGNESIUM 1.8 mg/dL (1.8-2.4)
[2023-06-10 09:53] LABS: CREATININE 0.6 mg/dL (0.55-1.3)
[2023-06-10 09:54] LABS: BILIRUBIN,TOTAL 0.7 mg/dL (0.2-1); TOT PROT 5.5 g/dl (6.4-8.2)
[2023-06-10] MEDS ORDERED: POTASSIUM CHLORIDE TABS 10 MEQ TABLET.ER (FP) PO ONE (10:32)
[2023-06-10 11:07] LABS: BASO % 0.1 % (0-2.0); HEMATOCRIT 22.2 % (32.4-45.2); LYMPH % 10.9 % (8-40); MCH 26.4 pg (25.7-33.7); MCHC 31.4 g/dl (32.0-36.0); MEAN CELL VOLUME 83.9 fl (80-96); MEAN PLT VOLUME 10.8 fl (7.5-11.1); MONO % 7.3 % (3.8-10.2); NEUT % 81.7 % (42.8-82.8); PLATELET COUNT 85 10^3/uL (134-434); RBC 2.65 M/mm3 (3.60-5.2); RDW 18.5 % (11.6-15.6); WHITE BLOOD COUNT 4.4 K/mm3 (4.0-10.0)
[2023-06-10] MEDS: POTASSIUM CHLORIDE 10 MEQ in SODIUM CHLORIDE 1,000 ML IV SCH (13:25)
[2023-06-10] MEDS ORDERED: IRON SUCROSE INJECTION 200 MG in SODIUM CHLORIDE 90 ML IVPB ONE (17:35)
[2023-06-11] MEDS ORDERED: LEVALBUTEROL HCL 0.63 MG/3 ML VIAL.NEB. IH ONE (02:44)
[2023-06-11 03:02] LABS: ARTERIAL BLD GAS O2 SATURATION 98.7 % (95-98); ARTERIAL BLOOD GAS BASE EXCESS -4.7 mmol/L (-2-2); ARTERIAL BLOOD GAS PO2 131.5 mmHg (80-100); ARTERIAL BLOOD GAS pH 7.424 (7.350-7.450)
[2023-06-11] MEDS ORDERED: LEVALBUTEROL HCL 0.31 MG/3 ML VIAL.NEB IH ONE (03:02)
[2023-06-11 03:03] LABS: ALLENS TEST POSITIVE
[2023-06-11] MEDS: METOPROLOL TARTRATE 5 MG/5 ML VIAL IVPUSH PRN (03:42)
[2023-06-11] MEDS: CEFEPIME 1 GM in DEXTROSE 5%-WATER 100 ML IVPB SCH ×3 (03:48→17:37)
[2023-06-11 04:54] LABS: BASO % 0.2 % (0-2.0); HEMATOCRIT 28.6 % (32.4-45.2); HEMOGLOBIN 9.2 GM/dL (10.7-15.3); LYMPH % 12.1 % (8-40); MCH 26.1 pg (25.7-33.7); MCHC 32.2 g/dl (32.0-36.0); MEAN CELL VOLUME 81.1 fl (80-96); MEAN PLT VOLUME 10.4 fl (7.5-11.1); MONO % 1.8 % (3.8-10.2); NEUT % 85.9 % (42.8-82.8); PLATELET COUNT 148 10^3/uL (134-434); RBC 3.53 M/mm3 (3.60-5.2); RDW 18.6 % (11.6-15.6); WHITE BLOOD COUNT 6.3 K/mm3 (4.0-10.0)
[2023-06-11 05:14] LABS: BLOOD UREA NITROGEN 23.6 mg/dL (7-18)
[2023-06-11 05:17] LABS: CREATININE 0.8 mg/dL (0.55-1.3)
[2023-06-11 05:18] LABS: BILIRUBIN,TOTAL 0.9 mg/dL (0.2-1); TOT PROT 7.2 g/dl (6.4-8.2)
[2023-06-11] MEDS ORDERED: FUROSEMIDE 40 MG/4 ML INJECTABLE VIAL IVPUSH ONE (05:39)
[2023-06-11] MEDS: metoPROLOL SUCCINATE 25 MG TAB.SR.24H (FP) PO SCH ×3 (05:49→21:33)
[2023-06-11 05:51] LABS: ALBUMIN 2.6 g/dl (3.4-5.0); CALCIUM 8.8 mg/dL (8.5-10.1)
[2023-06-11] MEDS: HEPARIN NA (PORCINE) 5,000 UNITS/ML 1ML VIAL SQ SCH ×2 (11:04→21:33)
[2023-06-11] MEDS: methylPREDNISolone NA SUCC 40 MG/1 ML VIAL IVPUSH SCH (11:05)
[2023-06-11] MEDS: PANTOPRAZOLE SODIUM 40 MG VIAL IVPUSH SCH (11:05)
[2023-06-11] MEDS: INSULIN SLIDING SCALE (NOVOLOG) 1 VIAL SQ SCH ×3 (11:45→21:33)
[2023-06-11] MEDS: PANTOPRAZOLE 40 MG TABLET PO SCH (12:08)
[2023-06-11] MEDS: POTASSIUM CHLORIDE 10 MEQ in SODIUM CHLORIDE 1,000 ML IV SCH (15:05)
[2023-06-11] MEDS: FUROSEMIDE 40 MG/4 ML INJECTABLE VIAL IVPUSH SCH (15:18)
[2023-06-12] MEDS: CEFEPIME 1 GM in DEXTROSE 5%-WATER 100 ML IVPB SCH ×3 (01:38→17:16)
[2023-06-12] MEDS: metoPROLOL SUCCINATE 25 MG TAB.SR.24H (FP) PO SCH ×3 (06:10→22:53)
[2023-06-12] MEDS: FUROSEMIDE 40 MG/4 ML INJECTABLE VIAL IVPUSH SCH ×2 (06:10→13:28)
[2023-06-12] MEDS: INSULIN SLIDING SCALE (NOVOLOG) 1 VIAL SQ SCH ×4 (09:10→22:56)
[2023-06-12] MEDS: methylPREDNISolone NA SUCC 40 MG/1 ML VIAL IVPUSH SCH (10:29)
[2023-06-12] MEDS: PANTOPRAZOLE SODIUM 40 MG VIAL IVPUSH SCH (10:29)
[2023-06-12] MEDS: HEPARIN NA (PORCINE) 5,000 UNITS/ML 1ML VIAL SQ SCH ×2 (10:29→22:53)
[2023-06-12] MEDS: POTASSIUM CHLORIDE 10 MEQ in SODIUM CHLORIDE 1,000 ML IV SCH (22:54)
[2023-06-13] MEDS: CEFEPIME 1 GM in DEXTROSE 5%-WATER 100 ML IVPB SCH ×3 (01:36→18:24)
[2023-06-13] MEDS: INSULIN SLIDING SCALE (NOVOLOG) 1 VIAL SQ SCH ×4 (06:41→22:21)
[2023-06-13] MEDS: metoPROLOL SUCCINATE 25 MG TAB.SR.24H (FP) PO SCH ×3 (06:57→22:11)
[2023-06-13] MEDS: FUROSEMIDE 40 MG/4 ML INJECTABLE VIAL IVPUSH SCH ×2 (06:57→15:46)
[2023-06-13 08:11] LABS: POTASSIUM 3.9 mmol/L (3.5-5.1)
[2023-06-13 08:27] LABS: HEMATOCRIT 25.6 % (32.4-45.2); HEMOGLOBIN 8.3 GM/dL (10.7-15.3); MCH 26.3 pg (25.7-33.7); MCHC 32.3 g/dl (32.0-36.0); MEAN CELL VOLUME 81.3 fl (80-96); MEAN PLT VOLUME 10.4 fl (7.5-11.1); PLATELET COUNT 210 10^3/uL (134-434); RBC 3.14 M/mm3 (3.60-5.2); RDW 18.7 % (11.6-15.6); WHITE BLOOD COUNT 4.8 K/mm3 (4.0-10.0)
[2023-06-13 08:31] LABS: ALBUMIN 2.4 g/dl (3.4-5.0); CALCIUM 9.3 mg/dL (8.5-10.1)
[2023-06-13 08:32] LABS: BLOOD UREA NITROGEN 30.3 mg/dL (7-18); MAGNESIUM 2.4 mg/dL (1.8-2.4)
[2023-06-13 08:34] LABS: CREATININE 0.7 mg/dL (0.55-1.3)
[2023-06-13 08:35] LABS: BILIRUBIN,TOTAL 1.1 mg/dL (0.2-1)
[2023-06-13 08:36] LABS: TOT PROT 6.7 g/dl (6.4-8.2)
[2023-06-13] MEDS: PANTOPRAZOLE SODIUM 40 MG VIAL IVPUSH SCH (10:19)
[2023-06-13] MEDS: HEPARIN NA (PORCINE) 5,000 UNITS/ML 1ML VIAL SQ SCH ×2 (10:20→22:11)
[2023-06-13] MEDS: methylPREDNISolone NA SUCC 40 MG/1 ML VIAL IVPUSH SCH (10:20)
[2023-06-13] MEDS: POTASSIUM CHLORIDE 10 MEQ in SODIUM CHLORIDE 1,000 ML IV SCH (18:19)
[2023-06-13] MEDS ORDERED: ACETAMINOPHEN 1000 MG/100 ML BAG IVPB ONE (20:09)
[2023-06-14] MEDS: CEFEPIME 1 GM in DEXTROSE 5%-WATER 100 ML IVPB SCH ×3 (02:57→17:30)
[2023-06-14] MEDS: metoPROLOL SUCCINATE 25 MG TAB.SR.24H (FP) PO SCH ×3 (05:56→21:38)
[2023-06-14] MEDS: FUROSEMIDE 40 MG/4 ML INJECTABLE VIAL IVPUSH SCH (05:56)
[2023-06-14] MEDS: INSULIN SLIDING SCALE (NOVOLOG) 1 VIAL SQ SCH ×4 (06:02→21:37)
[2023-06-14] MEDS: predniSONE 10 MG TABLET (UD) PO SCH (10:26)
[2023-06-14] MEDS: PANTOPRAZOLE 40 MG TABLET PO SCH (10:26)
[2023-06-14] MEDS: HEPARIN NA (PORCINE) 5,000 UNITS/ML 1ML VIAL SQ SCH ×2 (10:27→21:37)
[2023-06-14] MEDS: FUROSEMIDE 40 MG TABLET (FP) PO SCH (10:27)
[2023-06-14 11:53] LABS: BASO % 0.2 % (0-2.0); EOS % 0.3 % (0-4.5); HEMATOCRIT 25.8 % (32.4-45.2); HEMOGLOBIN 8.4 GM/dL (10.7-15.3); LYMPH % 6.6 % (8-40); MCH 25.9 pg (25.7-33.7); MCHC 32.4 g/dl (32.0-36.0); MEAN PLT VOLUME 9.3 fl (7.5-11.1); MONO % 3.3 % (3.8-10.2); NEUT % 89.6 % (42.8-82.8); PLATELET COUNT 231 10^3/uL (134-434); RBC 3.23 M/mm3 (3.60-5.2); RDW 19.2 % (11.6-15.6); WHITE BLOOD COUNT 5.3 K/mm3 (4.0-10.0)
[2023-06-14 12:18] LABS: POTASSIUM 3.4 mmol/L (3.5-5.1)
[2023-06-14 12:19] LABS: CALCIUM 8.8 mg/dL (8.5-10.1)
[2023-06-14 12:20] LABS: ALBUMIN 2.1 g/dl (3.4-5.0); BLOOD UREA NITROGEN 29.8 mg/dL (7-18)
[2023-06-14 12:23] LABS: CREATININE 0.6 mg/dL (0.55-1.3)
[2023-06-14 12:25] LABS: BILIRUBIN,TOTAL 0.8 mg/dL (0.2-1); TOT PROT 6.3 g/dl (6.4-8.2)
[2023-06-14 15:36] VITALS: BMI 21.7
[2023-06-14] MEDS: POTASSIUM CHLORIDE 10 MEQ in SODIUM CHLORIDE 1,000 ML IV SCH (17:30)
[2023-06-14 18:07] LABS: FREE KAPPA,SERUM 102.6 mg/L (3.3-19.4)
[2023-06-15] MEDS: CEFEPIME 1 GM in DEXTROSE 5%-WATER 100 ML IVPB SCH ×2 (02:14→09:25)
[2023-06-15] MEDS: metoPROLOL SUCCINATE 25 MG TAB.SR.24H (FP) PO SCH ×3 (06:05→21:00)
[2023-06-15] MEDS: INSULIN SLIDING SCALE (NOVOLOG) 1 VIAL SQ SCH ×4 (06:05→21:45)
[2023-06-15] MEDS: PANTOPRAZOLE 40 MG TABLET PO SCH (09:24)
[2023-06-15] MEDS: predniSONE 10 MG TABLET (UD) PO SCH (09:24)
[2023-06-15] MEDS: HEPARIN NA (PORCINE) 5,000 UNITS/ML 1ML VIAL SQ SCH ×2 (09:25→21:00)
[2023-06-15] MEDS: FUROSEMIDE 40 MG TABLET (FP) PO SCH (09:26)
[2023-06-15] MEDS ORDERED: CEFUROXIME AXETIL 500 MG TABLET PO SCH (10:30)
[2023-06-15 17:07] LABS: ATYPICAL pANCA <1:20 titer (Neg:<1:20); C-ANCA <1:20 titer (Neg:<1:20)
[2023-06-15] MEDS: POTASSIUM CHLORIDE 10 MEQ in SODIUM CHLORIDE 1,000 ML IV SCH (18:23)
[2023-06-16] MEDS: metoPROLOL SUCCINATE 25 MG TAB.SR.24H (FP) PO SCH ×3 (05:56→21:32)
[2023-06-16] MEDS: INSULIN SLIDING SCALE (NOVOLOG) 1 VIAL SQ SCH ×4 (06:01→21:33)
[2023-06-16 09:01] LABS: BASO % 0.8 % (0-2.0); EOS % 0.1 % (0-4.5); HEMATOCRIT 26.2 % (32.4-45.2); HEMOGLOBIN 8.5 GM/dL (10.7-15.3); LYMPH % 14.7 % (8-40); MCH 26.2 pg (25.7-33.7); MCHC 32.3 g/dl (32.0-36.0); MEAN CELL VOLUME 81.1 fl (80-96); MEAN PLT VOLUME 9.7 fl (7.5-11.1); MONO % 6.4 % (3.8-10.2); PLATELET COUNT 294 10^3/uL (134-434); RBC 3.23 M/mm3 (3.60-5.2); RDW 18.9 % (11.6-15.6); WHITE BLOOD COUNT 6.7 K/mm3 (4.0-10.0)
[2023-06-16 09:31] LABS: CALCIUM 8.8 mg/dL (8.5-10.1)
[2023-06-16 09:32] LABS: ALBUMIN 2.1 g/dl (3.4-5.0); BLOOD UREA NITROGEN 28.5 mg/dL (7-18)
[2023-06-16 09:35] LABS: CREATININE 0.6 mg/dL (0.55-1.3)
[2023-06-16 09:37] LABS: BILIRUBIN,TOTAL 0.7 mg/dL (0.2-1); TOT PROT 6.2 g/dl (6.4-8.2)
[2023-06-16] MEDS: HEPARIN NA (PORCINE) 5,000 UNITS/ML 1ML VIAL SQ SCH ×2 (09:49→21:32)
[2023-06-16] MEDS: FUROSEMIDE 40 MG TABLET (FP) PO SCH (09:50)
[2023-06-16] MEDS: PANTOPRAZOLE 40 MG TABLET PO SCH (09:50)
[2023-06-16] MEDS: predniSONE 10 MG TABLET (UD) PO SCH (09:50)
[2023-06-16 14:07] VITALS: RESP 18
[2023-06-16] MEDS: POTASSIUM CHLORIDE 10 MEQ in SODIUM CHLORIDE 1,000 ML IV SCH (18:51)
[2023-06-17] MEDS: metoPROLOL SUCCINATE 25 MG TAB.SR.24H (FP) PO SCH ×3 (06:45→22:36)
[2023-06-17] MEDS: INSULIN SLIDING SCALE (NOVOLOG) 1 VIAL SQ SCH ×4 (06:48→22:36)
[2023-06-17] MEDS: FUROSEMIDE 40 MG TABLET (FP) PO SCH (10:26)
[2023-06-17] MEDS: HEPARIN NA (PORCINE) 5,000 UNITS/ML 1ML VIAL SQ SCH ×2 (10:28→22:36)
[2023-06-17] MEDS: PANTOPRAZOLE 40 MG TABLET PO SCH (10:28)
[2023-06-17] MEDS: predniSONE 10 MG TABLET (UD) PO SCH (10:28)
[2023-06-17] MEDS: POTASSIUM CHLORIDE 10 MEQ in SODIUM CHLORIDE 1,000 ML IV SCH (21:15)
[2023-06-18] MEDS: metoPROLOL SUCCINATE 25 MG TAB.SR.24H (FP) PO SCH ×3 (06:11→21:50)
[2023-06-18] MEDS: INSULIN SLIDING SCALE (NOVOLOG) 1 VIAL SQ SCH ×4 (06:17→21:50)
[2023-06-18] MEDS: predniSONE 10 MG TABLET (UD) PO SCH (10:06)
[2023-06-18] MEDS: FUROSEMIDE 40 MG TABLET (FP) PO SCH (10:07)
[2023-06-18] MEDS: PANTOPRAZOLE 40 MG TABLET PO SCH (10:07)
[2023-06-18] MEDS: HEPARIN NA (PORCINE) 5,000 UNITS/ML 1ML VIAL SQ SCH ×2 (10:07→21:50)
[2023-06-18] MEDS: POTASSIUM CHLORIDE 10 MEQ in SODIUM CHLORIDE 1,000 ML IV SCH (21:50)
[2023-06-19] MEDS: metoPROLOL SUCCINATE 25 MG TAB.SR.24H (FP) PO SCH ×2 (05:41→13:28)
[2023-06-19] MEDS: INSULIN SLIDING SCALE (NOVOLOG) 1 VIAL SQ SCH ×3 (06:39→16:54)
[2023-06-19] MEDS: HEPARIN NA (PORCINE) 5,000 UNITS/ML 1ML VIAL SQ SCH (10:58)
[2023-06-19] MEDS: PANTOPRAZOLE 40 MG TABLET PO SCH (10:59)
[2023-06-19] MEDS: predniSONE 10 MG TABLET (UD) PO SCH (10:59)
[2023-06-19] MEDS: FUROSEMIDE 40 MG TABLET (FP) PO SCH (10:59)
[2023-06-19 19:21] VITALS: BP 110/60; PULSE 82; TEMP 98.3
== END 2023-06-19 20:05 | DRG 871 ==
LOC: JER 11:41 → JERBED 12:43 → J4S 20:09
PROVIDERS: ADMIT Internal Medicine; ATTEND Internal Medicine
DX: A41.89 Other specified sepsis (principal); G93.41 Metabolic encephalopathy; J69.0 Pneumonitis due to inhalation of food and vomit; J96.01 Acute respiratory failure with hypoxia; D61.818 Other pancytopenia; E87.0 Hyperosmolality and hypernatremia; I24.8 Other forms of acute ischemic heart disease; I50.32 Chronic diastolic (congestive) heart failure; I11.0 Hypertensive heart disease with heart failure; K21.9 Gastro-esophageal reflux disease without esophagitis; E78.5 Hyperlipidemia, unspecified; K59.00 Constipation, unspecified; K76.0 Fatty (change of) liver, not elsewhere classified; K80.20 Calculus of gallbladder without cholecystitis without obstruction; I48.91 Unspecified atrial fibrillation; F03.90 Unspecified dementia, unspecified severity, without behavioral disturbance, psychotic disturbance, mood disturbance, and anxiety; R00.0 Tachycardia, unspecified; R29.6 Repeated falls; D64.9 Anemia, unspecified; Z88.0 Allergy status to penicillin; R31.29 Other microscopic hematuria
CPT/HCPCS: 0241U-QW; 36415; 36600; 70450-TC; 71045-TC-FY; 71275-TC; 74177-TC; 80048; 80053; 81003; 82272; 82550; 82553; 82607; 82728; 82746; 82803; 82962; 83520; 83540; 83550; 83605; 83735; 83880; 83883; 84155; 84165; 84484; 85025; 85027; 85610; 85730; 86038; 86256; 86850; 86900; 86901; 87040; 87070; 87086; 87205; 87899; 93005; 93010; 97116-GP; 97161-GP; 99291; G0480; J1644; J1756; Q9967

== ENCOUNTER 2023-12-07 15:01 | Inpatient (IN) | payer OTHER ==
[2023-12-07 15:37] VITALS: BMI 19.8
[2023-12-07 16:40] LABS: BASO % 0.4 % (0-2.0); HEMATOCRIT 37.9 % (32.4-45.2); HEMOGLOBIN 12.6 GM/dL (10.7-15.3); LYMPH % 22.8 % (8-40); MCH 26.8 pg (25.7-33.7); MCHC 33.3 g/dl (32.0-36.0); MEAN CELL VOLUME 80.4 fl (80-96); MEAN PLT VOLUME 9.9 fl (7.5-11.1); MONO % 15.7 % (3.8-10.2); NEUT % 61.1 % (42.8-82.8); PLATELET COUNT 110 10^3/uL (134-434); RBC 4.71 M/mm3 (3.60-5.2); RDW 23.1 % (11.6-15.6); WHITE BLOOD COUNT 7.7 K/mm3 (4.0-10.0)
[2023-12-07 16:56] LABS: VENOUS BASE EXCESS -4.6 mmol/L (-2-2); VENOUS O2 SATURATION 61.1 % (70-80); VENOUS PCO2 37.3 mmHg (38-52); VENOUS PH 7.355 (7.310-7.410)
[2023-12-07 17:05] LABS: CHLORIDE 107 mmol/L (98-107); SODIUM 138 mmol/L (136-145)
[2023-12-07 17:08] LABS: CALCIUM 8.6 mg/dL (8.5-10.1)
[2023-12-07 17:09] LABS: ANION GAP 8 mmol/L (4-13); BLOOD UREA NITROGEN 22.1 mg/dL (7-18); CO2 22 mmol/L (21-32); GLUCOSE,RANDOM 84 mg/dL (74-106)
[2023-12-07 17:11] LABS: CREATININE 1.1 mg/dL (0.55-1.3); SGOT/AST 59 U/L (15-37); SGPT/ALT 27 U/L (13-61)
[2023-12-07 17:13] LABS: TOT PROT 8.4 g/dl (6.4-8.2)
[2023-12-07 17:14] LABS: ALK PHOS 87 U/L (45-117)
[2023-12-07 17:28] LABS: ANISOCYTOSIS 2+; MACROCYTOSIS 1+; OVALOCYTE 1+; TEAR DROP CELLS 1+
[2023-12-07 17:30] LABS: PLATELET ESTIMATE SLT DECREASE
[2023-12-07] MEDS ORDERED: CEFTRIAXONE 1 GM/50 ML BAG ONE (18:47)
[2023-12-07] MEDS: CEFTRIAXONE 1,000 MG in DEXTROSE 5%-WATER - 50 ML IVPB ONE (18:56)
[2023-12-07] MEDS: SODIUM CHLORIDE 0.9% 500 ML INFUS.BAG IV ONE (18:56)
[2023-12-08] MEDS: ACETAMINOPHEN 1000 MG/100 ML BAG IVPB ONE (00:57)
[2023-12-08] MEDS ORDERED: METOPROLOL TARTRATE 25 MG TABLET (FP) ONE (01:13)
[2023-12-08] MEDS: METOPROLOL TARTRATE 25 MG TABLET (FP) PO SCH ×2 (01:19→22:00)
[2023-12-08 06:42] LABS: BASO % 0.4 % (0-2.0); HEMATOCRIT 36.4 % (32.4-45.2); HEMOGLOBIN 11.9 GM/dL (10.7-15.3); LYMPH % 16.2 % (8-40); MCH 26.5 pg (25.7-33.7); MCHC 32.7 g/dl (32.0-36.0); MEAN PLT VOLUME 10.9 fl (7.5-11.1); MONO % 15.6 % (3.8-10.2); NEUT % 67.8 % (42.8-82.8); PLATELET COUNT 100 10^3/uL (134-434); RDW 22.4 % (11.6-15.6); WHITE BLOOD COUNT 7.3 K/mm3 (4.0-10.0)
[2023-12-08 06:59] LABS: POTASSIUM 4.1 mmol/L (3.5-5.1)
[2023-12-08 07:00] LABS: CALCIUM 8.6 mg/dL (8.5-10.1)
[2023-12-08 07:01] LABS: BLOOD UREA NITROGEN 25.1 mg/dL (7-18)
[2023-12-08] MEDS: SODIUM CHLORIDE 1,000 ML IV SCH (08:59)
[2023-12-08 09:57] LABS: EPI CELLS 8 /uL (0-25.1); HYALINE CASTS 1 /uL (0-3.1); PH,URINE 5.5 (5.0-8.0); URINE APPEARANCE CLEAR; URINE BACTERIA 3 /uL (0-1359); URINE BILIRUBIN NEGATIVE (NEGATIVE); URINE COLOR DK YELLOW; URINE GLUCOSE (UA) NEGATIVE (NEGATIVE); URINE KETONE TRACE (NEGATIVE); URINE LEUK ESTERASE NEGATIVE (NEGATIVE); URINE NITRITE NEGATIVE (NEGATIVE); URINE PROTEIN 1+ (NEGATIVE); URINE RBC 83 /uL (0-23.9); URINE WBC 30 /uL (0-25.8)
[2023-12-08] MEDS: CEFTRIAXONE 1 GM in DEXTROSE 5%-WATER - 50 ML IVPB SCH (10:06)
[2023-12-08] MEDS: AZITHROMYCIN IVPB 500 MG/250 ML BAG IVPB SCH (10:06)
[2023-12-08] MEDS: traZODone HCL 50 MG TABLET (FP) PO SCH (21:12)
[2023-12-09 08:13] LABS: ALBUMIN 2.5 g/dl (3.4-5.0); BLOOD UREA NITROGEN 23.9 mg/dL (7-18); CALCIUM 8.5 mg/dL (8.5-10.1); MAGNESIUM 2.2 mg/dL (1.8-2.4)
[2023-12-09 08:16] LABS: CREATININE 0.8 mg/dL (0.55-1.3); PHOSPHOROUS 3.1 mg/dL (2.5-4.9)
[2023-12-09 08:18] LABS: BILIRUBIN,TOTAL 0.6 mg/dL (0.2-1)
[2023-12-09] MEDS ORDERED: traZODone HCL 50 MG TABLET (FP) PO SCH (10:00)
[2023-12-09] MEDS: PANTOPRAZOLE 20 MG TABLET PO SCH (10:48)
[2023-12-09] MEDS: predniSONE 2.5 MG TABLET PO SCH (10:49)
[2023-12-09] MEDS: ACETAMINOPHEN 1000 MG/100 ML BAG IVPB ONE (11:41)
[2023-12-09] MEDS: POLYETHYLENE GLYCOL (HEALTHYLAX) 3350 17 GM PACKET PO SCH (14:53)
[2023-12-10 08:38] LABS: HEMATOCRIT 35.3 % (32.4-45.2); HEMOGLOBIN 11.3 GM/dL (10.7-15.3); MCHC 31.9 g/dl (32.0-36.0); MEAN CELL VOLUME 81.5 fl (80-96); MEAN PLT VOLUME 10.4 fl (7.5-11.1); PLATELET COUNT 94 10^3/uL (134-434); RBC 4.33 M/mm3 (3.60-5.2); RDW 23.2 % (11.6-15.6); WHITE BLOOD COUNT 4.2 K/mm3 (4.0-10.0)
[2023-12-10 09:12] LABS: BLOOD UREA NITROGEN 18.6 mg/dL (7-18); CALCIUM 8.5 mg/dL (8.5-10.1)
[2023-12-10 09:16] LABS: CREATININE 0.7 mg/dL (0.55-1.3)
[2023-12-10] MEDS: predniSONE 5 MG TABLET (UD) PO SCH (10:26)
[2023-12-11] MEDS: METOPROLOL TARTRATE 5 MG/5 ML VIAL IVPUSH ONE (03:30)
[2023-12-11 09:30] LABS: HEMATOCRIT 37.7 % (32.4-45.2); HEMOGLOBIN 12.2 GM/dL (10.7-15.3); MCH 26.5 pg (25.7-33.7); MCHC 32.4 g/dl (32.0-36.0); MEAN CELL VOLUME 81.9 fl (80-96); MEAN PLT VOLUME 10.2 fl (7.5-11.1); PLATELET COUNT 125 10^3/uL (134-434); RDW 22.7 % (11.6-15.6); WHITE BLOOD COUNT 7.9 K/mm3 (4.0-10.0)
[2023-12-11 09:48] LABS: CREATININE 0.7 mg/dL (0.55-1.3); PHOSPHOROUS 2.6 mg/dL (2.5-4.9)
[2023-12-11 10:00] LABS: BLOOD UREA NITROGEN 12.4 mg/dL (7-18); CALCIUM 8.9 mg/dL (8.5-10.1); MAGNESIUM 1.8 mg/dL (1.8-2.4)
[2023-12-11] MEDS: METOPROLOL TARTRATE 25 MG TABLET (FP) PO SCH (10:22)
[2023-12-12 06:40] LABS: HEMATOCRIT 33.5 % (32.4-45.2); MCH 26.4 pg (25.7-33.7); MCHC 32.9 g/dl (32.0-36.0); MEAN CELL VOLUME 80.5 fl (80-96); MEAN PLT VOLUME 9.8 fl (7.5-11.1); PLATELET COUNT 144 10^3/uL (134-434); RBC 4.16 M/mm3 (3.60-5.2); RDW 21.9 % (11.6-15.6); WHITE BLOOD COUNT 5.9 K/mm3 (4.0-10.0)
[2023-12-12 07:18] LABS: POTASSIUM 3.8 mmol/L (3.5-5.1)
[2023-12-12 07:23] LABS: CALCIUM 8.3 mg/dL (8.5-10.1)
[2023-12-12 07:24] LABS: ALBUMIN 2.2 g/dl (3.4-5.0); BLOOD UREA NITROGEN 13.6 mg/dL (7-18)
[2023-12-12 07:27] LABS: CREATININE 0.6 mg/dL (0.55-1.3)
[2023-12-12 07:28] LABS: TOT PROT 6.8 g/dl (6.4-8.2)
[2023-12-12 07:29] LABS: BILIRUBIN,TOTAL 0.6 mg/dL (0.2-1)
[2023-12-13 06:40] LABS: HEMATOCRIT 33.3 % (32.4-45.2); MCH 26.6 pg (25.7-33.7); MEAN CELL VOLUME 80.7 fl (80-96); MEAN PLT VOLUME 9.4 fl (7.5-11.1); PLATELET COUNT 149 10^3/uL (134-434); RBC 4.13 M/mm3 (3.60-5.2); RDW 21.4 % (11.6-15.6); WHITE BLOOD COUNT 5.1 K/mm3 (4.0-10.0)
[2023-12-13 07:05] LABS: POTASSIUM 3.8 mmol/L (3.5-5.1)
[2023-12-13 07:15] LABS: ALBUMIN 2.2 g/dl (3.4-5.0); CALCIUM 8.6 mg/dL (8.5-10.1)
[2023-12-13 07:18] LABS: CREATININE 0.7 mg/dL (0.55-1.3)
[2023-12-13 07:20] LABS: BILIRUBIN,TOTAL 0.6 mg/dL (0.2-1); TOT PROT 6.5 g/dl (6.4-8.2)
[2023-12-13] MEDS: FUROSEMIDE 40 MG/4 ML INJECTABLE VIAL IVPUSH ONE (08:59)
[2023-12-13] MEDS: ACETAMINOPHEN 325 MG TABLET (FP) PO PRN (09:09)
[2023-12-13] MEDS: CEFTRIAXONE 1 GM in DEXTROSE 5%-WATER - 50 ML IVPB SCH (14:27)
[2023-12-14 07:02] LABS: HEMOGLOBIN 11.3 GM/dL (10.7-15.3); MCH 26.9 pg (25.7-33.7); MCHC 33.2 g/dl (32.0-36.0); MEAN CELL VOLUME 81.1 fl (80-96); PLATELET COUNT 191 10^3/uL (134-434); RBC 4.19 M/mm3 (3.60-5.2); RDW 21.7 % (11.6-15.6); WHITE BLOOD COUNT 3.8 K/mm3 (4.0-10.0)
[2023-12-14 07:34] LABS: POTASSIUM 3.8 mmol/L (3.5-5.1)
[2023-12-14 07:36] LABS: CALCIUM 8.9 mg/dL (8.5-10.1)
[2023-12-14 07:37] LABS: BLOOD UREA NITROGEN 16.7 mg/dL (7-18)
[2023-12-14 07:40] LABS: ALBUMIN 2.2 g/dl (3.4-5.0)
[2023-12-14 07:41] LABS: BILIRUBIN,TOTAL 0.4 mg/dL (0.2-1); TOT PROT 6.9 g/dl (6.4-8.2)
[2023-12-14 07:43] LABS: CREATININE 0.6 mg/dL (0.55-1.3)
[2023-12-14] MEDS: FUROSEMIDE 20 MG TABLET (FP) PO SCH (10:16)
[2023-12-14 12:08] VITALS: RESP 18
[2023-12-14 15:14] VITALS: BP 110/67; PULSE 70; TEMP 98.4
== END 2023-12-14 17:35 | DRG 871 ==
LOC: JER 15:01 → JERBED 16:43 → J4W 12-08 03:13 → OBSVTOIN 12-08 09:02
PROVIDERS: ADMIT Internal Medicine; ATTEND Internal Medicine
DX: A41.89 Other specified sepsis (principal); J18.9 Pneumonia, unspecified organism; I50.32 Chronic diastolic (congestive) heart failure; K21.9 Gastro-esophageal reflux disease without esophagitis; R00.0 Tachycardia, unspecified; J44.9 Chronic obstructive pulmonary disease, unspecified; D64.9 Anemia, unspecified; K59.00 Constipation, unspecified; K76.0 Fatty (change of) liver, not elsewhere classified; E78.5 Hyperlipidemia, unspecified; F03.90 Unspecified dementia, unspecified severity, without behavioral disturbance, psychotic disturbance, mood disturbance, and anxiety; I48.91 Unspecified atrial fibrillation; W18.30XA Fall on same level, unspecified, initial encounter; Y92.098 Other place in other non-institutional residence as the place of occurrence of the external cause; Y99.9 Unspecified external cause status
CPT/HCPCS: 0241U-QW; 36415; 70450-TC; 71045-TC-FY; 72125-TC; 72170-TC-FY; 72192-TC; 80048; 80053; 81003; 82550; 82553; 82803; 83605; 83735; 84100; 84443; 84484; 85025; 85027; 86140; 86162; 87040; 87070; 87086; 87205; 87899; 93005; 93010; 97116-GP; 99285-25; G0378; J0131

== ENCOUNTER 2024-06-16 13:34 | Emergency (ER) | payer OTHER ==
[2024-06-16 13:45] VITALS: TEMP 97.7; BMI 22.9
[2024-06-16] MEDS ORDERED: ACETAMINOPHEN INJECTION 100 ML ONE (15:48)
[2024-06-16] MEDS: ACETAMINOPHEN 1000 MG/100 ML BAG IVPB ONE (16:07)
[2024-06-16 16:15] LABS: BASO % 0.6 % (0-2.0); EOS % 0.3 % (0-4.5); HEMATOCRIT 33.6 % (32.4-45.2); HEMOGLOBIN 11.1 GM/dL (10.7-15.3); LYMPH % 28.1 % (8-40); MCH 28.2 pg (25.7-33.7); MEAN CELL VOLUME 85.4 fl (80-96); MEAN PLT VOLUME 10.1 fl (7.5-11.1); MONO % 15.1 % (3.8-10.2); NEUT % 55.9 % (42.8-82.8); PLATELET COUNT 117 10^3/uL (134-434); RBC 3.94 M/mm3 (3.60-5.2); RDW 15.8 % (11.6-15.6); WHITE BLOOD COUNT 3.3 K/mm3 (4.0-10.0)
[2024-06-16 16:48] LABS: POTASSIUM 4.5 mmol/L (3.5-5.1)
[2024-06-16 16:50] LABS: ALBUMIN 3.1 g/dl (3.4-5.0); CALCIUM 8.8 mg/dL (8.5-10.1)
[2024-06-16 16:51] LABS: BLOOD UREA NITROGEN 17.5 mg/dL (7-18)
[2024-06-16 16:55] LABS: BILIRUBIN,TOTAL 0.7 mg/dL (0.2-1); TOT PROT 8.1 g/dl (6.4-8.2)
[2024-06-16 18:51] LABS: PH,URINE 6.5 (5.0-8.0); URINE APPEARANCE CLEAR; URINE BILIRUBIN NEGATIVE (NEGATIVE); URINE COLOR YELLOW; URINE GLUCOSE (UA) NEGATIVE (NEGATIVE); URINE KETONE NEGATIVE (NEGATIVE); URINE LEUK ESTERASE NEGATIVE (NEGATIVE); URINE NITRITE NEGATIVE (NEGATIVE); URINE PROTEIN NEGATIVE (NEGATIVE)
[2024-06-16] MEDS ORDERED: ONDANSETRON 4 MG/2 ML VIAL ONE (19:28)
[2024-06-16] MEDS ORDERED: FAMOTIDINE 20 MG/50 ML IVPB 20 MG/50 ML MG IVPB ONE (19:28)
[2024-06-16] MEDS ORDERED: MAG HYDROX/AL HYDROX/SIMETH 30 ML UNIT-DOSE CUP ONE (19:28)
[2024-06-16] MEDS: SODIUM CHLORIDE 1,000 ML IV STA (19:38)
[2024-06-16] MEDS: ONDANSETRON 4 MG/2 ML VIAL IVPUSH ONE (19:38)
[2024-06-16] MEDS: FAMOTIDINE 20 MG/50 ML IVPB 20 MG/50 ML MG IVPB ONE (19:38)
[2024-06-16] MEDS: MAG HYDROX/AL HYDROX/SIMETH 30 ML UNIT-DOSE CUP PO ONE (19:38)
[2024-06-16] MEDS ORDERED: ACETAMINOPHEN 325 MG TABLET (FP) ONE (20:48)
[2024-06-16 20:59] VITALS: BP 112/84; PULSE 82; RESP 18
[2024-06-16] MEDS: ACETAMINOPHEN 500 MG TABLET (FP) PO ONE (20:59)
== END 2024-06-16 21:00 | disposition home or self-care (01) ==
LOC: JER 13:34
PROC: 3E033GC Introduction of Other Therapeutic Substance into Peripheral Vein, Percutaneous Approach (ICD-10-PCS; principal; 2024-06-16)
PROC: 3E033NZ Introduction of Analgesics, Hypnotics, Sedatives into Peripheral Vein, Percutaneous Approach (ICD-10-PCS; 2024-06-16)
PROC: 3E033NZ Introduction of Analgesics, Hypnotics, Sedatives into Peripheral Vein, Percutaneous Approach (ICD-10-PCS; 2024-06-16)
DX: R10.13 Epigastric pain (principal); R10.12 Left upper quadrant pain; R10.11 Right upper quadrant pain; M25.551 Pain in right hip; M25.552 Pain in left hip; R05.9 Cough, unspecified; R11.0 Nausea; Z20.822 Contact with and (suspected) exposure to COVID-19
CPT/HCPCS: 0241U-QW; 36415; 71045-TC-FY; 74177-TC; 80053; 81003; 83690; 84484; 85025; 87086; 99285-25; J0131; Q9967

== ENCOUNTER 2024-07-03 10:06 | Emergency (ER) | payer OTHER ==
[2024-07-03 10:24] VITALS: BMI 24.7
[2024-07-03 15:58] VITALS: BP 122/60; PULSE 71; RESP 18; TEMP 97.7
== END 2024-07-03 16:35 | disposition home or self-care (01) ==
LOC: JER 10:06
DX: M25.551 Pain in right hip (principal); M25.552 Pain in left hip; K04.7 Periapical abscess without sinus; W06.XXXA Fall from bed, initial encounter
CPT/HCPCS: 70450-TC; 70486-TC; 72131-TC; 72192-TC; 93005; 93010; 99284-25

== ENCOUNTER 2024-07-12 11:31 | Inpatient (IN) | payer OTHER ==
[2024-07-12 13:08] LABS: BASO % 0.7 % (0-2.0); EOS % 0.1 % (0-4.5); HEMATOCRIT 36.6 % (32.4-45.2); HEMOGLOBIN 11.9 GM/dL (10.7-15.3); MCH 27.2 pg (25.7-33.7); MCHC 32.7 g/dl (32.0-36.0); MEAN CELL VOLUME 83.4 fl (80-96); MEAN PLT VOLUME 9.5 fl (7.5-11.1); NEUT % 70.2 % (42.8-82.8); PLATELET COUNT 160 10^3/uL (134-434); RBC 4.38 M/mm3 (3.60-5.2); RDW 15.1 % (11.6-15.6); WHITE BLOOD COUNT 4.3 K/mm3 (4.0-10.0)
[2024-07-12 14:14] LABS: POTASSIUM 3.2 mmol/L (3.5-5.1)
[2024-07-12 14:17] LABS: ALBUMIN 2.9 g/dl (3.4-5.0); BLOOD UREA NITROGEN 12.4 mg/dL (7-18); MAGNESIUM 2.2 mg/dL (1.8-2.4)
[2024-07-12 14:23] LABS: TOT PROT 8.2 g/dl (6.4-8.2)
[2024-07-12] MEDS ORDERED: POTASSIUM CHLORIDE ORAL LIQUID 20 MEQ/15 ML ONE (14:48)
[2024-07-12] MEDS: POTASSIUM CHLORIDE ORAL LIQUID 20 MEQ/15 ML PO ONE (14:51)
[2024-07-12 15:22] LABS: BILIRUBIN,TOTAL 0.7 mg/dL (0.2-1)
[2024-07-12] MEDS ORDERED: CEFTRIAXONE 1 GM/50 ML BAG ONE (18:24)
[2024-07-12] MEDS: CEFTRIAXONE 1,000 MG in DEXTROSE 5%-WATER - 50 ML IVPB ONE (18:43)
[2024-07-12] MEDS ORDERED: AZITHROMYCIN IVPB 500 MG/250 ML BAG IVPB ONE (19:03)
[2024-07-12] MEDS: AZITHROMYCIN IVPB 500 MG in DEXTROSE 5%-WATER - 250 ML IVPB ONE (19:13)
[2024-07-12 19:14] LABS: EPI CELLS 8 /uL (0-25.1); HYALINE CASTS 0 /uL (0-3.1); PH,URINE 6.5 (5.0-8.0); URINE APPEARANCE CLEAR; URINE BACTERIA 16 /uL (0-1359); URINE BILIRUBIN NEGATIVE (NEGATIVE); URINE COLOR YELLOW; URINE GLUCOSE (UA) NEGATIVE (NEGATIVE); URINE KETONE NEGATIVE (NEGATIVE); URINE LEUK ESTERASE NEGATIVE (NEGATIVE); URINE NITRITE NEGATIVE (NEGATIVE); URINE PROTEIN TRACE (NEGATIVE); URINE RBC 28 /uL (0-23.9); URINE WBC 10 /uL (0-25.8)
[2024-07-12 20:45] VITALS: BMI 25.1
[2024-07-12] MEDS ORDERED: FLU VACCINE (FLULAVAL) PF 45 MCG/0.5 ML SYRINGE 2024-2025 IM ONE (22:00)
[2024-07-13] MEDS: ACETAMINOPHEN 325 MG TABLET (FP) PO PRN (05:46)
[2024-07-13] MEDS: CEFTRIAXONE 1 GM in DEXTROSE 5%-WATER - 50 ML IVPB SCH (09:19)
[2024-07-13] MEDS: metoPROLOL SUCCINATE 25 MG TAB.SR.24H (FP) PO SCH (09:19)
[2024-07-13] MEDS: AZITHROMYCIN IVPB 500 MG/250 ML BAG IVPB SCH (09:24)
[2024-07-13] MEDS: ENOXAPARIN NA (PORCINE) 40 MG/0.4 ML DISP.SYRIN SQ SCH (09:27)
[2024-07-13 10:19] LABS: BASO % 1.3 % (0-2.0); HEMOGLOBIN 11.4 GM/dL (10.7-15.3); MCH 26.7 pg (25.7-33.7); MCHC 31.7 g/dl (32.0-36.0); MEAN CELL VOLUME 84.1 fl (80-96); MEAN PLT VOLUME 10.1 fl (7.5-11.1); NEUT % 71.7 % (42.8-82.8); PLATELET COUNT 151 10^3/uL (134-434); RBC 4.28 M/mm3 (3.60-5.2); RDW 14.9 % (11.6-15.6); WHITE BLOOD COUNT 4.3 K/mm3 (4.0-10.0)
[2024-07-13] MEDS: DEXTROSE 5%-NORMAL SALINE 1,000 ML IV SCH (11:47)
[2024-07-13] MEDS: PANTOPRAZOLE 40 MG TABLET PO SCH (11:47)
[2024-07-13] MEDS: predniSONE 2.5 MG TABLET PO SCH (12:28)
[2024-07-13] MEDS: FLU VACCINE (FLULAVAL) PF 45 MCG/0.5 ML SYRINGE 2024-2025 IM ONE (12:29)
[2024-07-13 14:22] LABS: BLOOD UREA NITROGEN 13.8 mg/dL (7-18); CALCIUM 8.5 mg/dL (8.5-10.1); POTASSIUM 3.3 mmol/L (3.5-5.1)
[2024-07-14] MEDS: predniSONE 5 MG TABLET (UD) PO SCH (09:25)
[2024-07-14] MEDS: POTASSIUM CHLORIDE ORAL LIQUID 20 MEQ/15 ML PO ONE (09:52)
[2024-07-14] MEDS: POLYETHYLENE GLYCOL (HEALTHYLAX) 3350 17 GM PACKET PO SCH (13:16)
[2024-07-14 22:19] VITALS: RESP 18
[2024-07-15] MEDS ORDERED: BISACODYL 10 MG SUPP.RECT PR PRN (09:23)
[2024-07-15] MEDS: POLYETHYLENE GLYCOL (HEALTHYLAX) 3350 17 GM PACKET PO SCH (09:55)
[2024-07-15 10:08] LABS: POTASSIUM 3.8 mmol/L (3.5-5.1)
[2024-07-15 10:09] LABS: HEMATOCRIT 34.2 % (32.4-45.2); HEMOGLOBIN 10.9 GM/dL (10.7-15.3); MCH 27.1 pg (25.7-33.7); MEAN CELL VOLUME 84.7 fl (80-96); MEAN PLT VOLUME 10.1 fl (7.5-11.1); PLATELET COUNT 147 10^3/uL (134-434); RBC 4.03 M/mm3 (3.60-5.2); RDW 15.1 % (11.6-15.6); WHITE BLOOD COUNT 3.6 K/mm3 (4.0-10.0)
[2024-07-15 10:11] LABS: BLOOD UREA NITROGEN 9.3 mg/dL (7-18)
[2024-07-15 10:14] LABS: CREATININE 0.7 mg/dL (0.55-1.3)
[2024-07-17] MEDS: AZITHROMYCIN 250 MG TABLET PO SCH (10:05)
[2024-07-17] MEDS: CEFUROXIME AXETIL 500 MG TABLET PO SCH (21:15)
[2024-07-18 02:14] VITALS: BP 129/82; PULSE 66; TEMP 98.6
== END 2024-07-18 04:37 | DRG 195 ==
LOC: JER 11:31 → JERBED 19:25 → J6S 19:54
PROVIDERS: ADMIT Internal Medicine; ATTEND Family Medicine
DX: J18.9 Pneumonia, unspecified organism (principal); E78.5 Hyperlipidemia, unspecified; I48.91 Unspecified atrial fibrillation; F03.90 Unspecified dementia, unspecified severity, without behavioral disturbance, psychotic disturbance, mood disturbance, and anxiety; K76.0 Fatty (change of) liver, not elsewhere classified; K21.9 Gastro-esophageal reflux disease without esophagitis; K59.00 Constipation, unspecified; R42 Dizziness and giddiness; K80.20 Calculus of gallbladder without cholecystitis without obstruction; Z88.0 Allergy status to penicillin
CPT/HCPCS: 36415; 71045-TC-FY; 74177-TC; 80048; 80053; 81003; 83605; 83735; 84484; 85025; 85027; 87040; 87086; 87186; 87899; 94761; 97116-GP; 97161-GP; 99285-25; Q9967

== ENCOUNTER 2024-10-12 20:22 | Inpatient (IN) | payer OTHER ==
[2024-10-12 21:25] LABS: VENOUS BASE EXCESS 0.1 mmol/L (-2-2); VENOUS O2 SATURATION 36.9 % (70-80); VENOUS PCO2 41.9 mmHg (38-52); VENOUS PH 7.394 (7.310-7.410)
[2024-10-12 21:26] LABS: BASO % 0.4 % (0-2.0); HEMATOCRIT 35.1 % (32.4-45.2); HEMOGLOBIN 11.3 GM/dL (10.7-15.3); LYMPH % 12.9 % (8-40); MCH 26.1 pg (25.7-33.7); MCHC 32.3 g/dl (32.0-36.0); MEAN CELL VOLUME 80.8 fl (80-96); MEAN PLT VOLUME 8.7 fl (7.5-11.1); MONO % 11.5 % (3.8-10.2); NEUT % 75.2 % (42.8-82.8); PLATELET COUNT 117 10^3/uL (134-434); RBC 4.34 M/mm3 (3.60-5.2); RDW 17.6 % (11.6-15.6); WHITE BLOOD COUNT 7.5 K/mm3 (4.0-10.0)
[2024-10-12 21:53] LABS: POTASSIUM 3.8 mmol/L (3.5-5.1)
[2024-10-12 21:55] LABS: ALBUMIN 3.2 g/dl (3.4-5.0); CALCIUM 9.3 mg/dL (8.5-10.1)
[2024-10-12 21:56] LABS: BLOOD UREA NITROGEN 15.6 mg/dL (7-18)
[2024-10-12 22:11] LABS: CREATININE 1.1 mg/dL (0.55-1.3)
[2024-10-12 22:12] LABS: BILIRUBIN,TOTAL 0.8 mg/dL (0.2-1); TOT PROT 8.2 g/dl (6.4-8.2)
[2024-10-12] MEDS ORDERED: ACETAMINOPHEN INJECTION 100 ML ONE (22:21)
[2024-10-12] MEDS: ACETAMINOPHEN 1000 MG/100 ML BAG IVPB ONE (22:29)
[2024-10-12] MEDS: ONDANSETRON *ODT* 4 MG TABLET SL ONE (22:29)
[2024-10-12 22:56] LABS: INR 1.19 (0.83-1.09); PROTHROMBIN TIME (PATIENT) 13.4 SEC (9.7-13.0)
[2024-10-12 22:59] LABS: ACTIVATED PTT 29.8 SECONDS (25.2-36.5)
[2024-10-13 00:33] LABS: EPI CELLS 12 /uL (0-25.1); HYALINE CASTS 0 /uL (0-3.1); URINE APPEARANCE CLEAR; URINE BACTERIA 7 /uL (0-1359); URINE BILIRUBIN NEGATIVE (NEGATIVE); URINE COLOR YELLOW; URINE GLUCOSE (UA) NEGATIVE (NEGATIVE); URINE KETONE NEGATIVE (NEGATIVE); URINE LEUK ESTERASE NEGATIVE (NEGATIVE); URINE NITRITE NEGATIVE (NEGATIVE); URINE PROTEIN 2+ (NEGATIVE); URINE RBC 151 /uL (0-23.9); URINE WBC 10 /uL (0-25.8)
[2024-10-13] MEDS ORDERED: CEFTRIAXONE 1 G/50 ML PREMIX 50 ML IVPB ONE (01:03)
[2024-10-13] MEDS ORDERED: AZITHROMYCIN IVPB 500 MG/250 ML BAG IVPB ONE (01:03)
[2024-10-13] MEDS: SODIUM CHLORIDE 0.9% 500 ML INFUS.BAG IV ONE (01:10)
[2024-10-13] MEDS: AZITHROMYCIN IVPB 500 MG in DEXTROSE 5%-WATER - 250 ML IVPB ONE (01:52)
[2024-10-13] MEDS ORDERED: DOCUSATE SODIUM 100 MG CAPSULE (FP) PO PRN (04:32)
[2024-10-13] MEDS ORDERED: HEPARIN NA (PORCINE) 5,000 UNITS/ML 1ML VIAL ONE ×2 (06:50→14:34)
[2024-10-13] MEDS: SODIUM PHOSPHATE/NA BIPHOS 133 ML ENEMA RC ONE (06:56)
[2024-10-13] MEDS: HEPARIN NA (PORCINE) 5,000 UNITS/ML 1ML VIAL SQ SCH (06:56)
[2024-10-13 07:07] LABS: BASO % 0.5 % (0-2.0); HEMATOCRIT 36.3 % (32.4-45.2); HEMOGLOBIN 11.3 GM/dL (10.7-15.3); LYMPH % 14.3 % (8-40); MCH 25.8 pg (25.7-33.7); MEAN CELL VOLUME 83.1 fl (80-96); MEAN PLT VOLUME 9.7 fl (7.5-11.1); MONO % 8.2 % (3.8-10.2); PLATELET COUNT 115 10^3/uL (134-434); RBC 4.37 M/mm3 (3.60-5.2); RDW 18.1 % (11.6-15.6)
[2024-10-13 07:29] LABS: POTASSIUM 4.2 mmol/L (3.5-5.1)
[2024-10-13 07:35] LABS: CALCIUM 8.9 mg/dL (8.5-10.1)
[2024-10-13 07:36] LABS: BLOOD UREA NITROGEN 15.9 mg/dL (7-18); MAGNESIUM 1.9 mg/dL (1.8-2.4)
[2024-10-13] MEDS ORDERED: ACETAMINOPHEN INJECTION 100 ML ONE (08:07)
[2024-10-13] MEDS: ACETAMINOPHEN 1000 MG/100 ML BAG IVPB ONE (08:40)
[2024-10-13] MEDS ORDERED: POLYETHYLENE GLYCOL (HEALTHYLAX) 3350 17 GM PACKET ONE (11:04)
[2024-10-13] MEDS: POLYETHYLENE GLYCOL (HEALTHYLAX) 3350 17 GM PACKET PO SCH (11:06)
[2024-10-13] MEDS ORDERED: ACETAMINOPHEN 325 MG TABLET (FP) ONE (15:34)
[2024-10-13] MEDS: ACETAMINOPHEN 325 MG TABLET (FP) PO PRN (15:40)
[2024-10-13 18:13] VITALS: RESP 18
[2024-10-13 20:53] VITALS: BMI 28.3
[2024-10-13] MEDS: CEFTRIAXONE 1 G/50 ML PREMIX 50 ML IVPB SCH (21:25)
[2024-10-13] MEDS: AZITHROMYCIN IVPB 500 MG/250 ML BAG IVPB SCH (21:26)
[2024-10-14 09:04] LABS: HEMOGLOBIN 10.8 GM/dL (10.7-15.3); MCH 26.6 pg (25.7-33.7); MCHC 32.7 g/dl (32.0-36.0); MEAN CELL VOLUME 81.3 fl (80-96); PLATELET COUNT 93 10^3/uL (134-434); RBC 4.06 M/mm3 (3.60-5.2); RDW 17.9 % (11.6-15.6); WHITE BLOOD COUNT 3.6 K/mm3 (4.0-10.0)
[2024-10-14 09:52] LABS: ANISOCYTOSIS 0; MACROCYTOSIS 0
[2024-10-14 10:21] LABS: POTASSIUM 3.7 mmol/L (3.5-5.1)
[2024-10-14 10:22] LABS: CALCIUM 8.8 mg/dL (8.5-10.1)
[2024-10-14 10:23] LABS: ALBUMIN 2.7 g/dl (3.4-5.0); BLOOD UREA NITROGEN 17.6 mg/dL (7-18)
[2024-10-14 10:28] LABS: BILIRUBIN,TOTAL 0.7 mg/dL (0.2-1); TOT PROT 7.2 g/dl (6.4-8.2)
[2024-10-14] MEDS: DOXYCYCLINE INJECTION 100 MG in DEXTROSE 5%-WATER 100 ML IVPB SCH (11:18)
[2024-10-15] MEDS: ALBUTEROL SO4 2.5/IPRATROPIUM 0.5 INH SOL 3 ML VIAL.NEB. NEB SCH (16:41)
[2024-10-16 12:00] LABS: HEMOGLOBIN 10.5 GM/dL (10.7-15.3); MCHC 31.7 g/dl (32.0-36.0); MEAN CELL VOLUME 82.1 fl (80-96); MEAN PLT VOLUME 9.6 fl (7.5-11.1); PLATELET COUNT 118 10^3/uL (134-434); RBC 4.02 M/mm3 (3.60-5.2); RDW 17.5 % (11.6-15.6); WHITE BLOOD COUNT 2.8 K/mm3 (4.0-10.0)
[2024-10-16 12:43] LABS: POTASSIUM 3.7 mmol/L (3.5-5.1)
[2024-10-16 13:03] LABS: BLOOD UREA NITROGEN 15.4 mg/dL (7-18); CALCIUM 9.2 mg/dL (8.5-10.1)
[2024-10-16 13:08] LABS: CREATININE 0.9 mg/dL (0.55-1.3)
[2024-10-18] MEDS: METOPROLOL TARTRATE 25 MG TABLET (FP) PO SCH (10:49)
[2024-10-18 11:27] LABS: BASO % 0.8 % (0-2.0); EOS % 0.7 % (0-4.5); HEMATOCRIT 34.7 % (32.4-45.2); HEMOGLOBIN 11.5 GM/dL (10.7-15.3); LYMPH % 31.2 % (8-40); MCH 26.6 pg (25.7-33.7); MCHC 33.1 g/dl (32.0-36.0); MEAN CELL VOLUME 80.2 fl (80-96); MEAN PLT VOLUME 9.5 fl (7.5-11.1); MONO % 13.6 % (3.8-10.2); NEUT % 53.7 % (42.8-82.8); PLATELET COUNT 143 10^3/uL (134-434); RBC 4.33 M/mm3 (3.60-5.2); RDW 17.5 % (11.6-15.6)
[2024-10-21 10:52] VITALS: BP 107/61; PULSE 106; TEMP 98.2
== END 2024-10-21 13:52 | disposition home health service (06) | DRG 193 ==
LOC: JER 20:22 → JERBED 10-13 03:13 → J5S 10-13 19:06
PROVIDERS: ADMIT Internal Medicine; ATTEND Family Medicine
DX: J18.9 Pneumonia, unspecified organism (principal); G93.41 Metabolic encephalopathy; J98.11 Atelectasis; J44.0 Chronic obstructive pulmonary disease with (acute) lower respiratory infection; F03.90 Unspecified dementia, unspecified severity, without behavioral disturbance, psychotic disturbance, mood disturbance, and anxiety; I48.91 Unspecified atrial fibrillation; E78.5 Hyperlipidemia, unspecified; J44.9 Chronic obstructive pulmonary disease, unspecified; K21.9 Gastro-esophageal reflux disease without esophagitis; K59.00 Constipation, unspecified; R53.1 Weakness; D64.9 Anemia, unspecified; D69.6 Thrombocytopenia, unspecified; R41.82 Altered mental status, unspecified; M32.9 Systemic lupus erythematosus, unspecified; R80.9 Proteinuria, unspecified; R11.10 Vomiting, unspecified; Z88.0 Allergy status to penicillin
CPT/HCPCS: 0241U-QW; 36415; 70450-TC; 71045-TC-FY; 74177-TC; 80048; 80053; 81003; 82803; 82962; 83605; 83735; 84484; 85025; 85027; 85610; 85651; 85730; 86038; 86160; 86225; 86235; 86850; 86900; 86901; 87040; 87086; 87899; 93005; 93010; 94640; 97116-GP; 97161-GP; 99285-25; J0131; J1644; Q9967